=== PATIENT | female | born 1935 | race Caucasian/White ===

== ENCOUNTER → 2017-11-01 10:44 | Outpatient (BNVA) | payer MEDICARE, MEDICAID, SELFPAY | PROVIDERS: PCP Internal Medicine; Visit Provider Nurse Practitioner Family | DX: I48.2 Chronic atrial fibrillation (principal); Z45.02 Encounter for adjustment and management of automatic implantable cardiac defibrillator; I49.5 Sick sinus syndrome; E53.8 Deficiency of other specified B group vitamins; Z86.73 Personal history of transient ischemic attack (TIA), and cerebral infarction without residual deficits | CPT/HCPCS: 93279; 99213 ==

== ENCOUNTER → 2018-01-05 10:51 | Outpatient (BNVA) | payer MEDICARE, MEDICAID, SELFPAY | PROVIDERS: PCP Internal Medicine; Visit Provider Orthopaedic Surgery | DX: M17.12 Unilateral primary osteoarthritis, left knee (principal) | CPT/HCPCS: 20610; 99211; 99213; J1040 ==

== ENCOUNTER → 2018-02-07 12:58 | Outpatient (BNVA) | payer MEDICARE, MEDICAID, SELFPAY | PROVIDERS: PCP Internal Medicine; Visit Provider Nurse Practitioner Family | DX: I49.5 Sick sinus syndrome (principal); I48.2 Chronic atrial fibrillation; Z45.018 Encounter for adjustment and management of other part of cardiac pacemaker | CPT/HCPCS: 93279; 99213 ==

== ENCOUNTER → 2018-02-28 09:17 | Outpatient (BNVA) | payer MEDICARE, MEDICAID, SELFPAY | PROVIDERS: PCP Internal Medicine; Visit Provider Nurse Practitioner Family | DX: I49.5 Sick sinus syndrome (principal); I48.2 Chronic atrial fibrillation; Z45.02 Encounter for adjustment and management of automatic implantable cardiac defibrillator | CPT/HCPCS: 93279; 99213 ==

== ENCOUNTER → 2018-04-20 09:47 | Outpatient (BNVA) | payer MEDICARE, MEDICAID, SELFPAY | PROVIDERS: PCP Internal Medicine; Visit Provider Nurse Practitioner Family | DX: I49.5 Sick sinus syndrome (principal); I48.2 Chronic atrial fibrillation; Z45.018 Encounter for adjustment and management of other part of cardiac pacemaker; Z79.01 Long term (current) use of anticoagulants | CPT/HCPCS: 93280; 99213 ==

== ENCOUNTER 2018-04-27 12:18 | Outpatient (REF) | payer MEDICARE, MEDICAID, SELFPAY ==
[2018-04-27 21:59] LABS: Anion Gap 9.4 mmol/L (3-11); BUN 10 mg/dL (7-18); CO2 27.6 mmol/L (21.0-32.0); Chloride 105 mmol/L (98-107); Estimated GFR 59.94 (mL/min/1.73m2); Glucose 166 mg/dL (70-100); Potassium 3.8 mmol/L (3.5-5.1); Sodium 142 mmol/L (136-145)
== END 2018-04-27 12:38 ==
LOC: NCHCN 12:18
PROVIDERS: PCP Internal Medicine; Visit Provider Internal Medicine
DX: I10 Essential (primary) hypertension (principal); E11.9 Type 2 diabetes mellitus without complications; E53.8 Deficiency of other specified B group vitamins; I48.91 Unspecified atrial fibrillation; M17.9 Osteoarthritis of knee, unspecified
CPT/HCPCS: 80048

== ENCOUNTER → 2018-10-31 13:20 | Outpatient (BNVA) | payer MEDICARE, MEDICAID, SELFPAY | PROVIDERS: PCP Internal Medicine; Visit Provider Nurse Practitioner Family | DX: I49.5 Sick sinus syndrome (principal); I48.2 Chronic atrial fibrillation; Z79.01 Long term (current) use of anticoagulants; Z45.02 Encounter for adjustment and management of automatic implantable cardiac defibrillator | CPT/HCPCS: 93283; 99024 ==

== ENCOUNTER 2019-01-10 00:28 | Outpatient (CLI) | payer MEDICARE, MEDICAID, SELFPAY ==
--- NOTE | 2019-01-10 14:09 | DI.RAD_ITS ---
EXAM: XR FOOT LT COMPLETE INDICATION: LT FOOT PAIN, M79.672, INJURY 4-6 WEEKS AGO. COMPARISON: No exams were available for comparison TECHNIQUE: 2D digital imaging was performed. FINDINGS: The bones appear osteoporotic. No acute or subacute fracture is seen. A heel spur and vascular calc ifications are incidentally noted. There are minimal degenerative changes. IMPRESSION: No acute abnormality.
== END 2019-01-10 00:48 ==
PROVIDERS: PCP Internal Medicine; Visit Provider Internal Medicine
DX: M79.672 Pain in left foot (principal); M85.88 Other specified disorders of bone density and structure, other site; M77.32 Calcaneal spur, left foot
CPT/HCPCS: 73630

== ENCOUNTER → 2019-04-25 10:58 | Outpatient (BNVA) | payer MEDICARE, MEDICAID, SELFPAY | PROVIDERS: PCP Internal Medicine; Referring Provider Internal Medicine; Visit Provider Internal Medicine Cardiovascular Disease | DX: Z95.0 Presence of cardiac pacemaker (principal) | CPT/HCPCS: 93279; 99212 ==

== ENCOUNTER 2019-07-05 10:53 | Outpatient (REF) | payer MEDICARE, MEDICAID, SELFPAY ==
[2019-07-06 09:00] LABS: Anion Gap 6.7 mmol/L (3-11); BUN 13 mg/dL (7-18); CO2 31.3 mmol/L (21.0-32.0); CREATININE 0.99 mg/dL (0.55-1.02); Calcium 9.4 mg/dL (8.5-10.1); Chloride 102 mmol/L (98-107); Estimated GFR 53.57 (mL/min/1.73m2); Glucose 162 mg/dL (74-106); Potassium 4.6 mmol/L (3.5-5.1); Sodium 140 mmol/L (136-145)
[2019-07-06 09:10] LABS: Hemoglobin A1C 6.5 % (3.8-5.6)
== END 2019-07-05 11:13 ==
LOC: NCHCN 10:53
PROVIDERS: PCP Internal Medicine; Visit Provider Internal Medicine
DX: E11.9 Type 2 diabetes mellitus without complications (principal); I10 Essential (primary) hypertension
CPT/HCPCS: 80048; 83036

== ENCOUNTER 2019-11-08 10:41 | Outpatient (REF) | payer MEDICARE, MEDICAID, SELFPAY ==
[2019-11-08 21:03] LABS: HCT 47.1 % (36.0-46.0); HGB 15.5 g/dL (11.2-15.7); MCH 32.6 pg (27.0-33.0); MCHC 32.9 % (32.0-36.0); MCV 98.9 fL (80-95); MPV 12.8 fL (8.0-11.0); Platelet Count 188 10^3/uL (130-400); RBC 4.76 10^6/uL (3.93-5.22); RDW 14.2 % (11.7-14.6); RDW-SD 51.8 fL; WBC 4.76 10^3/uL (4.4-10.8)
[2019-11-08 21:35] LABS: ALT 31 U/L (14-59); AST 33 U/L (15-37); Albumin 3.7 g/dL (3.4-5.0); Alkaline Phosphatase 145 U/L (46-116); Anion Gap 7.1 mmol/L (3-11); BUN 9 mg/dL (7-18); Bilirubin, Total 0.5 mg/dL (0.2-1.0); CO2 30.9 mmol/L (21.0-32.0); CREATININE 1.06 mg/dL (0.55-1.02); Calcium 9.2 mg/dL (8.5-10.1); Chloride 104 mmol/L (98-107); Estimated GFR 49.39 (mL/min/1.73m2); FREE T4 1.02 ng/dL (0.76-1.46); Glucose 161 mg/dL (74-106); Sodium 142 mmol/L (136-145); TSH 2.16 uIU/mL (0.36-3.74); Total Protein 7.1 g/dL (6.4-8.2)
== END 2019-11-08 11:01 ==
LOC: NCHCN 10:41
PROVIDERS: Visit Provider Internal Medicine
DX: R63.4 Abnormal weight loss (principal)
CPT/HCPCS: 80053; 85027; 84439; 84443

== ENCOUNTER → 2019-12-12 13:28 | Outpatient (BNVA) | payer MEDICARE, MEDICAID, SELFPAY | PROVIDERS: PCP Internal Medicine; Referring Provider Internal Medicine; Visit Provider Physician Assistant | DX: I48.20 Chronic atrial fibrillation, unspecified (principal); Z45.018 Encounter for adjustment and management of other part of cardiac pacemaker; Z79.01 Long term (current) use of anticoagulants | CPT/HCPCS: 93279; 99212 ==

== ENCOUNTER 2020-03-06 17:11 | Outpatient (REF) | payer MEDICARE, MEDICAID, SELFPAY ==
[2020-03-06 21:29] LABS: ALT 26 U/L (14-59); AST 31 U/L (15-37); Albumin 3.6 g/dL (3.4-5.0); Alkaline Phosphatase 135 U/L (46-116); Bilirubin, Total 0.4 mg/dL (0.2-1.0)
[2020-03-06 21:44] LABS: Hemoglobin A1C 6.5 % (<5.7)
== END 2020-03-06 17:31 ==
LOC: NCHCN 17:11
PROVIDERS: Visit Provider Internal Medicine
DX: I10 Essential (primary) hypertension (principal); I48.91 Unspecified atrial fibrillation; R94.5 Abnormal results of liver function studies; R73.09 Other abnormal glucose
CPT/HCPCS: 80076; 83036

== ENCOUNTER 2020-06-09 15:20 | Outpatient (REF) | payer MEDICARE, MEDICAID, SELFPAY ==
[2020-06-09 22:37] LABS: Vitamin B12 380 pg/mL (193-986)
== END 2020-06-09 15:21 | disposition home or self-care (01) ==
LOC: NCHCN 15:20
PROVIDERS: Visit Provider Internal Medicine
DX: E53.8 Deficiency of other specified B group vitamins (principal)
CPT/HCPCS: 82607

== ENCOUNTER → 2020-06-11 11:29 | Outpatient (BNVA) | payer MEDICARE, MEDICAID, SELFPAY | PROVIDERS: PCP Internal Medicine; Referring Provider Internal Medicine; Visit Provider Physician Assistant | DX: I48.21 Permanent atrial fibrillation (principal); I49.5 Sick sinus syndrome; Z45.018 Encounter for adjustment and management of other part of cardiac pacemaker | CPT/HCPCS: 93280; 99212 ==

== ENCOUNTER → 2020-12-10 13:57 | Outpatient (BNVA) | payer MEDICARE, MEDICAID, SELFPAY | PROVIDERS: PCP Internal Medicine; Referring Provider Internal Medicine; Visit Provider Physician Assistant | DX: I49.5 Sick sinus syndrome (principal); I48.21 Permanent atrial fibrillation; Z45.018 Encounter for adjustment and management of other part of cardiac pacemaker | CPT/HCPCS: 93280; 99212 ==

== ENCOUNTER 2021-03-10 19:00 | Outpatient (REF) | payer MEDICARE, MEDICAID, SELFPAY ==
[2021-03-10 16:06] LABS: HCT 44.7 % (36.0-46.0); HGB 14.9 g/dL (11.2-15.7); MCH 31.8 pg (27.0-33.0); MCHC 33.3 % (32.0-36.0); MCV 95.5 fL (80-95); MPV 12.5 fL (8.0-11.0); Platelet Count 200 10^3/uL (130-400); RBC 4.68 10^6/uL (3.93-5.22); RDW 13.7 % (11.7-14.6); RDW-SD 48.3 fL; WBC 4.46 10^3/uL (4.4-10.8)
[2021-03-10 16:28] LABS: Anion Gap 6.8 mmol/L (3-11); BUN 11 mg/dL (7-18); CO2 28.2 mmol/L (21.0-32.0); CREATININE 0.9 mg/dL (0.55-1.02); Calcium 8.9 mg/dL (8.5-10.1); Chloride 104 mmol/L (98-107); Estimated GFR 59.51 (mL/min/1.73m2); Glucose 140 mg/dL (74-106); Potassium 3.9 mmol/L (3.5-5.1); Sodium 139 mmol/L (136-145); Vitamin B12 568 pg/mL (193-986)
== END 2021-03-10 19:01 | disposition home or self-care (01) ==
LOC: NCHCN 19:00
PROVIDERS: PCP Internal Medicine; Visit Provider Family Medicine
DX: I10 Essential (primary) hypertension (principal); E53.8 Deficiency of other specified B group vitamins
CPT/HCPCS: 80048; 85027; 82607

== ENCOUNTER → 2021-06-10 13:43 | Outpatient (BNVA) | payer MEDICARE, MEDICAID, SELFPAY | PROVIDERS: PCP Internal Medicine; Visit Provider Physician Assistant | DX: I48.20 Chronic atrial fibrillation, unspecified (principal); Z95.0 Presence of cardiac pacemaker; I49.5 Sick sinus syndrome | CPT/HCPCS: 93279 ==

== ENCOUNTER 2021-09-08 19:05 | Outpatient (REF) | payer MEDICARE, MEDICAID, SELFPAY ==
[2021-09-08 16:02] LABS: Vitamin B12 911 pg/mL (193-986)
== END 2021-09-08 19:06 | disposition home or self-care (01) ==
LOC: NCHCN 19:05
PROVIDERS: PCP Internal Medicine; Visit Provider Family Medicine
DX: E53.8 Deficiency of other specified B group vitamins (principal)
CPT/HCPCS: 82607

== ENCOUNTER 2021-12-02 19:02 | Outpatient (REF) | payer MEDICARE, MEDICAID, SELFPAY | END 2021-12-02 19:03 | disposition home or self-care (01) | LOC: NCHCN 19:02 | PROVIDERS: PCP Internal Medicine; Visit Provider Family Medicine | DX: R30.0 Dysuria (principal) | CPT/HCPCS: 87077; 87086; 87186 ==

== ENCOUNTER → 2021-12-09 13:57 | Outpatient (BNVA) | payer MEDICARE, MEDICAID, SELFPAY | PROVIDERS: PCP Internal Medicine; Visit Provider Physician Assistant | DX: I48.20 Chronic atrial fibrillation, unspecified (principal); Z95.0 Presence of cardiac pacemaker; I49.5 Sick sinus syndrome | CPT/HCPCS: 93280 ==

== ENCOUNTER 2022-03-11 13:14 | Outpatient (REF) | payer MEDICARE, MEDICAID, SELFPAY ==
[2022-03-11 21:23] LABS: ALT 27 U/L (14-59); AST 37 U/L (15-37); Albumin 3.8 g/dL (3.4-5.0); Alkaline Phosphatase 137 U/L (46-116); Anion Gap 8.4 mmol/L (3-11); BUN 11 mg/dL (7-18); Bilirubin, Total 0.8 mg/dL (0.2-1.0); CO2 29.6 mmol/L (21.0-32.0); CREATININE 0.9 mg/dL (0.55-1.02); Calcium 9.3 mg/dL (8.5-10.1); Calculated LDL 100 mg/dL (<100); Chloride 105 mmol/L (98-107); Cholesterol 186 mg/dL (<200); Estimated GFR 62.26 (mL/min/1.73m2); Glucose 140 mg/dL (74-106); HDL Cholesterol 71 mg/dL (40-60); Potassium 4.2 mmol/L (3.5-5.1); Sodium 143 mmol/L (136-145); Total Protein 7.2 g/dL (6.4-8.2); Triglyceride 78 mg/dL (<150)
[2022-03-11 22:08] LABS: Vitamin B12 765 pg/mL (193-986)
== END 2022-03-11 13:15 | disposition home or self-care (01) ==
LOC: NCHCN 13:14
PROVIDERS: Visit Provider Family Medicine
DX: E53.8 Deficiency of other specified B group vitamins (principal); E11.9 Type 2 diabetes mellitus without complications; E78.00 Pure hypercholesterolemia, unspecified; I48.91 Unspecified atrial fibrillation; G60.9 Hereditary and idiopathic neuropathy, unspecified
CPT/HCPCS: 80053; 80061; 82607

== ENCOUNTER 2022-06-09 07:53 | Outpatient (CLI) | payer MEDICARE, MEDICAID, SELFPAY ==
--- NOTE | 2022-06-09 07:45 | RT.EKG_ITS ---
APPROVED REPORT Exam: Resting ECG Reason for Exam: afib Patient Location: O HR:90 bpm ECG Measurements Heart Rate 90 AXIS NC [id number] P [id number] QRSd 112 QRS 4 QT 374 T -57 QTc 458 Conclusion Afib/flut and V-paced complexes...other complexes, A-rate>240 No further rhythm analysis attempted due to paced rhythm Probable left ventricular hypertrophy...(RaVL+SV3)xQRSd >300 Nonspecific T abnormalities, inferior leads...T <-0.10mV, II III aVF Baseline wander in lead(s) V5
== END 2022-06-09 07:54 | disposition home or self-care (01) ==
LOC: DI.CARD 07:54
PROVIDERS: PCP Internal Medicine; Visit Provider Physician Assistant
DX: I48.91 Unspecified atrial fibrillation (principal)
CPT/HCPCS: 93010

== ENCOUNTER → 2022-06-09 13:57 | Outpatient (BNVA) | payer MEDICARE, MEDICAID, SELFPAY | PROVIDERS: PCP Internal Medicine; Visit Provider Physician Assistant | DX: Z46.89 Encounter for fitting and adjustment of other specified devices (principal); I48.20 Chronic atrial fibrillation, unspecified; Z79.01 Long term (current) use of anticoagulants; Z95.0 Presence of cardiac pacemaker | CPT/HCPCS: 93005; 93279; 99213 ==

== ENCOUNTER → 2022-12-08 14:23 | Outpatient (BNVA) | payer MEDICARE, MEDICAID, SELFPAY | PROVIDERS: PCP Internal Medicine; Referring Provider Internal Medicine; Visit Provider Physician Assistant | DX: Z45.018 Encounter for adjustment and management of other part of cardiac pacemaker (principal); I48.20 Chronic atrial fibrillation, unspecified; Z79.01 Long term (current) use of anticoagulants; I49.5 Sick sinus syndrome | CPT/HCPCS: 93279 ==

== ENCOUNTER 2023-03-15 16:14 | Outpatient (REF) | payer MEDICARE, MEDICAID, SELFPAY ==
[2023-03-15 21:42] LABS: HCT 44.4 % (36.0-46.0); HGB 14.6 g/dL (11.2-15.7); MCH 32.2 pg (27.0-33.0); MCHC 32.9 % (32.0-36.0); MCV 98 fL (80-95); MPV 11.6 fL (8.0-11.0); Platelet Count 201 10^3/uL (130-400); RBC 4.54 10^6/uL (3.93-5.22); RDW 13.8 % (11.7-14.6); RDW-SD 49.8 fL; WBC 5.11 10^3/uL (4.4-10.8)
[2023-03-15 22:03] LABS: ALT 35 U/L (14-59); AST 41 U/L (15-37); Albumin 3.5 g/dL (3.4-5.0); Alkaline Phosphatase 143 U/L (46-116); Anion Gap 8.2 mmol/L (3-11); BUN 13 mg/dL (7-18); Bilirubin, Total 0.6 mg/dL (0.2-1.0); CO2 29.8 mmol/L (21.0-32.0); CREATININE 0.9 mg/dL (0.55-1.02); Calcium 9.5 mg/dL (8.5-10.1); Chloride 105 mmol/L (98-107); Estimated GFR 61.87 (mL/min/1.73m2); Glucose 106 mg/dL (74-106); Sodium 143 mmol/L (136-145); Total Protein 7.3 g/dL (6.4-8.2)
== END 2023-03-15 16:15 | disposition home or self-care (01) ==
LOC: NCHCN 16:14
PROVIDERS: PCP Family Medicine; Visit Provider Family Medicine
DX: E11.9 Type 2 diabetes mellitus without complications (principal)
CPT/HCPCS: 80053; 85027

== ENCOUNTER → 2023-06-08 13:13 | Outpatient (BNVA) | payer MEDICARE, MEDICAID, SELFPAY | PROVIDERS: PCP Family Medicine; Visit Provider Student in an Organized Health Care Education/Training Program | DX: I48.20 Chronic atrial fibrillation, unspecified (principal); Z45.018 Encounter for adjustment and management of other part of cardiac pacemaker | CPT/HCPCS: 93280 ==

== ENCOUNTER 2023-09-14 14:29 | Outpatient (REF) | payer MEDICARE, MEDICAID, SELFPAY ==
[2023-09-14 14:52] LABS: Abs Immature Grans 0.02 10^3/uL (0.0-0.06); Absolute Basophil Count 0.06 10^3/uL (0.0-0.2); Absolute Eosinophil Count 0.24 10^3/uL (0.0-0.7); Absolute Lymphocyte Count 1.06 10^3/uL (1.2-3.4); Absolute Monocyte Count 0.47 10^3/uL (0.1-0.8); Absolute Neutrophil Count 3.35 10^3/uL (1.2-6.7); Basophils % 1.2 %; Eosinophils % 4.6 %; HCT 41.8 % (36.0-46.0); HGB 13.7 g/dL (11.2-15.7); Immature Grans % 0.4 %; Lymphocytes % 20.4 %; MCH 32.5 pg (27.0-33.0); MCHC 32.8 % (32.0-36.0); MCV 99 fL (80-95); MPV 11.8 fL (8.0-11.0); Neutrophils % 64.4 %; Platelet Count 159 10^3/uL (130-400); RBC 4.22 10^6/uL (3.93-5.22); RDW 13.7 % (11.7-14.6); RDW-SD 49.7 fL
[2023-09-14 15:40] LABS: Vitamin B12 483 pg/mL (193-986)
== END 2023-09-14 14:30 | disposition home or self-care (01) ==
LOC: NCHCN 14:29
PROVIDERS: PCP Family Medicine; Visit Provider Family Medicine
DX: G60.9 Hereditary and idiopathic neuropathy, unspecified (principal)
CPT/HCPCS: 82607; 85025

== ENCOUNTER → 2023-12-07 13:48 | Outpatient (BNVA) | payer MEDICARE, MEDICAID, SELFPAY | PROVIDERS: PCP Family Medicine; Visit Provider Student in an Organized Health Care Education/Training Program | DX: I48.20 Chronic atrial fibrillation, unspecified (principal); I49.5 Sick sinus syndrome; Z45.018 Encounter for adjustment and management of other part of cardiac pacemaker | CPT/HCPCS: 93280 ==

== ENCOUNTER 2024-03-21 22:14 | Outpatient (REF) | payer MEDICARE, MEDICAID, SELFPAY ==
--- OUTSIDE RECORDS SUMMARY | 2024-03-21 22:18 | XMS_ITS | Encounter Summary ---
Author Organization [facility] Address [address] [place] [address] Care Team Providers Care Urban Sociologist Name Role Phone Unavailable Primary Care Provider Unavailabl e Encounter Details Date Type Department Care Team (Late st Contact Info) Description 02/06/2007 Results Only [facility] [place] conversion [address] [place] [address] Elder Camacho FNP [address] [place], [place] [id number] Social History Tobacco Use Types Packs/Day Years Used Date Smoking Tobacco: Never Assessed Comments Unknown Sex and Gender Information Value Date Recorded Sex Assigned at Not on file Legal Sex Female 18:28 EST Gender Identity Not on file Sexual Orientation Not on file documented as of this encounter Plan of Treatment Not on file documented as of this encounter Procedures Procedure Name Priority Date/Time Associated Diagnosis Comments CYTOPATHOLOGY Routine 02/06/2007 0:00 EST documented in this encounter Results * CYTOPATHOLOGY (02/06/2007 0:00 EST) Pathology Report: CYTOPATHOLOGY REPORT Reports generated via electronic interface contain original data; however they are lacking the format of the original report. Caution should be taken when reading/interpreti ng unformatted reports. Name: ? KENNEDI REID ? Accession #: ? [id number] : ? 1935 (Age: 71) ??F ?Collect Date: ? 02/06/2007 Location: ? [facility] ? Receive Date: ? 02/07/2007 Provider: ?ELDER CAMACHO CADD OPERATOR Copy to: ? Specimen/Source: ?ThinPrep Pap Test, Cervix/Endocervix, processed on [employer] ThinPrep Imaging System, with manual evaluation Last Menstrual Period: ? ANTONETTE Other: ? HPVA - HPV testing requested if ASC-US on the current ThinPrep Pap test. ? SPECIMEN ADEQUACY ? Satisfactory for Evaluation - transformation zone component present GENERAL CATEGORIZATION ? Negative for Intraepithelial Lesion or Malignancy ? Document reviewed and electronically signed by: ? DARRIAN Rudolph(ASCP) ? Report Date: ??02/09/2007 10:03 End of Report [facility] 02/06/2007 02/07/2007 us Elder Camacho CADD OPERATOR PATHOLOGY ORDERABLES Final Resul t [facility] [address] [place] [address] documented in this encounter Visit Diagnoses Not on filedocumented in this encounter
--- OUTSIDE RECORDS SUMMARY | 2024-03-21 22:18 | XMS_ITS | Encounter Summary ---
Author Organization [facility] Address [address] [place] [address] Care Team Providers Care 2Nd Pressman Name Role Phone Unavailable Primary Care Provider Unavailabl e Encounter Details Date Type Department Care Team (Late st Contact Info) Description 02/11/2005 Results Only [facility] [place] conversion [address] [place] [address] Miguel Flores MD [address] [place] [id number] Social History Tobacco Use Types Packs/Day Years [...] Procedure Name Priority Date/Time Associated Diagnosis Comments SURGICAL PATHOLOGY Routine 02/11/2005 0:00 EST documented in this encounter Results * SURGICAL PATHOLOGY (02/11/2005 0:00 EST) Pathology Report: SURGICAL PATHOLOGY REPORT Reports generated via electronic interface contain original data; however they are lacking the format of the original report. Caution should be taken when reading/interpreti ng unformatted reports. Name: ? KENNEDI REID ? Accession #: ? [id number] ? : ? 1935 (Age: 69) ??F ? Collect Date: ? 02/11/2005 ? Location: ? [facility] ? Receive Date: ? 02/12/2005 ? Provider: MIGUEL FLORES MD Copy to: ELDERGAYE HAZEL INDUSTRIAL AERIAL INSTALLER ? Final Pathologic Diagnosis: A. ?Duodenum, fold, biopsy: 1. ?Small bowel mucosa with no specific pathologic features. B. ?Stomach, antrum, biopsy: 1. ?Gastric mucosa with mild chronic inflammation. 2. ?No Helicobacter pylori-like organisms identified on the H+E stained slides. C. ?Esophagus, 35 cm, biopsy: 1. ?Gastro-esophagea l junctional mucosa with chronic ??and focal mild acute inflammation. 2. ?No Helicobacter pylori-like organisms identified on the H+E stained slides. Document reviewed and electronically signed by: IMANI JAFFE MD Report ??Date: 02/16/2005 17:01 By the signature above, the attending physician certifies that he/she has personally conducted a gross and/or microscopic examination of the described specimens and rendered or confirmed the above diagnosis. Specimen(s) Received: A. ?Bx duodenal fold (#1) B. ?Bx antrum (#2) C. ?Esophagus 35 cm (#3) Clinical History: ? Hx GI bleed Gross Description: ? Received in Hollande's fixative labelled Jeanette and #1 bx duodenal fold are three fragments of orozco-brown soft tissue which measures 0.3 x 0.2 x 0.2 cm each. The specimen is entirely submitted in one cassette as (A). Received in Hollande's fixative labelled Hunt and #2 bx antrum are two fragments of orozco-brown soft tissue which measures 0.2 x 0.2 x 0.2 cm and 0.4 x 0.2 x 0.2 cm. The specimen is entirely submitted in one cassette as (B). Received in Hollande's fixative labelled Jeanette and #3 esophagus 35 cm are three fragments of orozco-brown soft tissue which measures 0.3 x 0.3 x 0.3 cm each. ??The specimen is entirely submitted in one cassette as (C). (Dr. Washington-AD)/mpl End of Report [facility] 02/11/2005 02/12/2005 8:4 3 EST us Miguel Flores MD PATHOLOGY ORDERABLES Final Result [facility] [address] [place] [address] documented in this encounter Visit Diagnoses Not on filedocumented in this encounter
--- OUTSIDE RECORDS SUMMARY | 2024-03-21 22:18 | XMS_ITS | Referral Summary ---
Author Organization [facility] Address [address] [place] [address] Care Team Providers Care Superintendent Nonselling Name Role Phone Luma Camacho Primary Care Provider [phone] Social History Tobacco Use Types Packs/Day Years Used Date Smoking Tobacco: Never Assessed Comments Unknown Sex and Gender Information Value Date Recorded Sex Assigned at Not on file Legal Sex Female 18:28 EST Gender Identity Not on file Sexual Orientation Not on file Plan of Treatment Not on file Care Teams Superintendent Nonselling Relationship Specialty Start Date End Date Luma Camacho FNP [address] [place] [address] PCP - General 12/27/14
--- OUTSIDE RECORDS SUMMARY | 2024-03-21 22:18 | XMS_ITS | Encounter Summary ---
Author Organization [facility] Address [address] [place] [address] Care Team Providers Care Document Control Manager Name Role Phone Unavailable Primary Care Provider Unavailabl e Encounter Details Date Type Department Care Team (Late st Contact Info) Description 05/30/2003 Results Only [facility] [place] [facility] [place] conversion [address] [place] [address] Elder Camacho FNP [address] [place], [place] [id number] Social History Tobacco Use Types Packs/Day Years [...] Priority Date/Time Associated Diagnosis Comments CYTOPATHOLOGY Routine 05/30/2003 0:00 EDT documented in this encounter Results * CYTOPATHOLOGY (05/30/2003 0:00 EDT) Pathology Report: CYTOPATHOLOGY REPORT Reports generated via electronic interface contain original data; however they are lacking the format of the original report. Caution should be taken when reading/interpreti ng unformatted reports. Name: ? KENNEDI REID ? Accession #: ? [id number] : ? 1935 (Age: 67) ??F ?Collect Date: ? 05/30/2003 Location: ? [facility] ? Receive Date: ? 06/03/2003 Provider: ?ELDER CAMACHO RADIOGRAPHER TECHNOLOGIST Copy to: ? Specimen/Source: ?ThinPrep Pap Test, Cervix/Endocervix Last Menstrual Period: ? Many Years Ago Previous Gynecologic Pathology: ? Yes: remote ? SPECIMEN ADEQUACY ? Satisfactory for Evaluation - transformation zone component present GENERAL CATEGORIZATION ? Negative for Intraepithelial Lesion or Malignancy ? Document reviewed and electronically signed by: ? Aneta Canela, SCT(ASCP) ? Report Date: ??06/05/2003 13:19 End of Report [facility] 05/30/2003 06/03/2003 Elder AGUEROP PATHOLOGY ORDERABLES Final Resul t [facility] [address] [place] [address] documented in this encounter Visit Diagnoses Not on filedocumented in this encounter
--- OUTSIDE RECORDS SUMMARY | 2024-03-21 22:18 | XMS_ITS | Encounter Summary ---
Author Organization [facility] Address [address] [place] [address] Care Team Providers Care Wheat Washer Name Role Phone Unavailable Primary Care Provider Unavailabl e Encounter Details Date Type Department Care Team (Late st Contact Info) Description 03/07/2001 Results Only [facility] [place] conversion [address] [place] [address] Elder Camacho FNP [address] [place], [place] [id number] Social History Tobacco Use Types Packs/Day Years [...] Priority Date/Time Associated Diagnosis Comments CYTOPATHOLOGY Routine 03/07/2001 0:00 EST documented in this encounter Results * CYTOPATHOLOGY (03/07/2001 0:00 EST) Pathology Report: CYTOPATHOLOGY REPORT Reports generated via electronic interface contain original data; however they are lacking the format of the original report. Caution should be taken when reading/interpreti ng unformatted reports. Name: ? KENNEDI REID ? Accession #: ? [id number] : ? 1935 (Age: 65) ??F ?Collect Date: ? 03/07/2001 Location: ? [facility] ? Receive Date: ? 03/09/2001 Provider: ?ELDER CAMACHO FORESTRY WORKERS Copy to: ? Specimen/Source: ?ThinPrep Pap Test, Cervix/Endocervix Last Menstrual Period: ? Many years ago. Previous Gynecologic Pathology: ? Yes: Atypical x 2 yrs ago. ? SPECIMEN ADEQUACY ? Satisfactory for Evaluation - transformation zone component present GENERAL CATEGORIZATION ? Negative for Intraepithelial Lesion or Malignancy ? Document reviewed and electronically signed by: ? Eliane Parrish, SCT(ASCP) ? Report Date: ??03/10/2001 09:47 End of Report [facility] 03/07/2001 03/09/2001 us Elder AGUEROP PATHOLOGY ORDERABLES Final Resul t [facility] [address] [place] [address] documented in this encounter Visit Diagnoses Not on filedocumented in this encounter
--- OUTSIDE RECORDS SUMMARY | 2024-03-21 22:18 | XMS_ITS | Clinical Summary ---
Author Organization [facility] Address [address] [place] [address] Care Team Providers Care Patrol Mother Name Role Phone Luma Camacho Primary Care Provider [phone] Social History Tobacco Use Types Packs/Day Years Used Date Smoking Tobacco: Never Assessed Comments Unknown Sex and Gender Information Value Date Recorded Sex Assigned at Not on file Legal Sex Female 18:28 EST Gender Identity Not on file Sexual Orientation Not on file Plan of Treatment Health Maintenance Due Date Last Done Comments Fall Risk Screening 10/12/2000 RSV Immunization ( o r 60+ Years) (1 - 1-dose 75+ series) 10/12/2010 COVID-19 Vaccine ( season) 2023 Care Teams Patrol Mother Relationship Specialty Start Date End Date Luma Camacho FNP [address] [place] [address] PCP - General 12/27/14
[2024-03-21 22:29] LABS: Abs Immature Grans 0.02 10^3/uL (0.0-0.06); Absolute Basophil Count 0.05 10^3/uL (0.0-0.2); Absolute Eosinophil Count 0.23 10^3/uL (0.0-0.7); Absolute Lymphocyte Count 1.17 10^3/uL (1.2-3.4); Absolute Monocyte Count 0.53 10^3/uL (0.1-0.8); Absolute Neutrophil Count 2.83 10^3/uL (1.2-6.7); Eosinophils % 4.8 %; HCT 41.1 % (36.0-46.0); HGB 13.7 g/dL (11.2-15.7); Immature Grans % 0.4 %; Lymphocytes % 24.2 %; MCH 32.3 pg (27.0-33.0); MCHC 33.3 % (32.0-36.0); MCV 97 fL (80-95); Neutrophils % 58.6 %; Platelet Count 166 10^3/uL (130-400); RBC 4.24 10^6/uL (3.93-5.22); RDW 14.6 % (11.7-14.6); RDW-SD 52.4 fL; WBC 4.83 10^3/uL (4.4-10.8)
[2024-03-21 22:51] LABS: ALT 33 U/L (14-59); AST 34 U/L (15-37); Albumin 3.4 g/dL (3.4-5.0); Alkaline Phosphatase 157 U/L (46-116); Anion Gap 8.2 mmol/L (3-11); BUN 11 mg/dL (7-18); Bilirubin, Total 0.66 mg/dL (0.2-1.0); CO2 26.8 mmol/L (21.0-32.0); CREATININE 0.9 mg/dL (0.55-1.02); Calcium 8.9 mg/dL (8.5-10.1); Chloride 106 mmol/L (98-107); Estimated GFR 61.49 (mL/min/1.73m2); Glucose 208 mg/dL (74-106); Potassium 4.1 mmol/L (3.5-5.1); Sodium 141 mmol/L (136-145); Total Protein 6.7 g/dL (6.4-8.2)
== END 2024-03-21 22:15 | disposition home or self-care (01) ==
LOC: NCHCN 22:14
PROVIDERS: PCP Family Medicine; Visit Provider Family Medicine
DX: I10 Essential (primary) hypertension (principal)
CPT/HCPCS: 80053; 85025

== ENCOUNTER → 2024-06-06 13:10 | Outpatient (BNVA) | payer MEDICARE, MEDICAID, SELFPAY | PROVIDERS: PCP Family Medicine; Referring Provider Family Medicine; Visit Provider Student in an Organized Health Care Education/Training Program | DX: Z95.810 Presence of automatic (implantable) cardiac defibrillator (principal); I49.5 Sick sinus syndrome | CPT/HCPCS: 93280 ==

== ENCOUNTER 2024-06-14 17:07 | Outpatient (REF) | payer MEDICARE, MEDICAID, SELFPAY | END 2024-06-14 17:08 | disposition home or self-care (01) | LOC: NCHCN 17:07 | PROVIDERS: PCP Family Medicine; Visit Provider Nurse Practitioner Family | DX: R31.9 Hematuria, unspecified (principal); R82.89 Other abnormal findings on cytological and histological examination of urine | CPT/HCPCS: 87086 ==

== ENCOUNTER 2024-06-17 11:49 | Inpatient (IN) | payer MEDICARE, MEDICAID, SELFPAY ==
[2024-06-17] VITALS (17 sets, daily range): BP systolic 108–146; BP diastolic 62–88; PULSE 78–101; RESP 14–26; TEMP 36.5–36.9; O2SAT 95–100
--- NOTE | 2024-06-17 12:00 | RT.EKG_ITS ---
APPROVED REPORT Exam: Resting ECG Reason for Exam: Weakness Patient Location: E HR:92 bpm ECG Measurements Heart Rate 92 AXIS OK [id number] P [id number] QRSd 124 QRS 12 QT 416 T -61 QTc 514 Conclusion Atrial fibrillation...V-rate 64-135, irreg A-activity Nonspecific intraventricular conduction delay...QRSd >115mS, not LBBB/RBBB Repol abnrm suggests ischemia, diffuse leads...ST-T neg, ant/lat/inf No Occlusion IN
--- NOTE | 2024-06-17 12:15 | DI.RAD_ITS ---
Exam(s) XR CHEST 2V PA LATERAL EXAM: XR CHEST 2V PA LATERAL CLINICAL HISTORY: Weakness, sob jaundice TECHNIQUE: 2D digital imaging was performed of the chest. Two images were obtained. PA and lateral views were obtained. COMPARISON: CR CHEST 2 VIEWS PA,LAT from 12/04/2007 FINDINGS: MEDIASTINUM: Normal. HEART: Normal. PULMONARY VASCULATURE: Normal. LUNGS: Clear. PLEURAL SPACE: No pleural effusion or pneumothorax. BONE:Within normal limits for the patient's age. OTHER FINDINGS:There is a cardiac pacing device in place. IMPRESSION: No acute pulmonary findings. DATA REPOSITORY: RADIATION DOSE DELIVERED:
--- NOTE | 2024-06-17 12:15 | DI.CT_ITS ---
Exam(s) CT ABDOMEN PELVIS W EXAM: CT ABDOMEN PELVIS W CLINICAL HISTORY: jaundice, dizziness TECHNIQUE: Imaging Protocol: Axial computed tomography images with coronal and sagittal reformatted images were created and reviewed. CONTRAST MATERIAL: Intravenous: Omnipaque 350 Contrast volume:75 mL Oral: No COMPARISON: There are no priors for comparison. FINDINGS: ABDOMEN: Lung Bases: Cardiomegaly. Liver: Normal density. No measurable mass. Portal, Superior Mesenteric, and Splenic Veins: Unremarkable. Gallbladder and Biliary Tract: There are stones seen within the gallbladder. The gallbladder is dist ended measuring 4.7 cm in diameter. There is a small amount of pericholecystic fluid. There is mild intra and moderate extrahepatic biliary ductal dilatation. No obstructing stone is identified. The common duct measures 1.1 cm in diameter. There does appear to be some tapering of the head of the p ancreas and a pancreatic mass should be considered. Pancreas: There is atrophy of the pancreas with marked dilatation of the pancreatic duct. Spleen: Normal. Adrenals: No masses seen. Kidneys: Normal size, contour and axis. No radiodense stones or obstructive uropathy. No masses seen. There is mild cortical atrophy of the left kidney. Abdominal Aorta: Abdominal portion non-dilated. Atherosclerotic calcification is present. Bowel: There is diverticulosis of the colon but no evidence of acute diverticulitis. There is no bow el wall thickening or obstruction. Appendix is unremarkable. Peritoneal Cavity: There is a trace amount of free fluid in the pelvis. No free air. Lymph Nodes: Within normal limits. Bones: Within normal limits for the patient's age. Soft Tissues: Unremarkable. PELVIS: Bladder: Symmetric distention, no gross wall thickening. Reproductive Organs: Unremarkable as visualized. Lymph Nodes: Within normal limits. Bones: Within normal limits for the patient's age. IMPRESSION: 1. Intra and extrahepatic biliary ductal dilatation without definite evidence of choledocholithiasis. While obstructing stone should still be considered, pancreatic mass cannot be excluded. Further ev aluation with ERCP/MRCP is recommended. 2. Colonic diverticulosis without evidence of acute diverticulitis. 3. Cholelithiasis and distended gallbladder. Small amount of pericholecystic fluid. 4. Pancreatic atrophy and marked dilatation of the pancreatic duct. 5. Trace amount of free fluid in the pelvis. RADIATION DOSE DELIVERED: 239.2mGy.cm Total DLP DATA REPOSITORY: All CT scans at this facility are submitted to the National Radiology Data Registry (NRDR) Dose Index Registry (DIR) with the [employer] (A[employer]). RADIATION OPTIMIZATION: All CT scans at this facility use at least one of these dose optimization te chniques: automated exposure control; mA and/or kV adjustment per patient size (includes targeted exa ms where dose is matched to clinical indication); or iterative reconstruction.
--- NOTE | 2024-06-17 12:27 | ED.GENADUL_ITS ---
Discharge Plan Disposition Patient Disposition: Admit to [facility] Condition: Stable Discharge Details Clinical Impression: Jaundice, Electrolyte disturbance, Elevated transaminase measurement Primary Care Provider: Laron Mae ED Provider: Krystal Guerra Home Meds and New Rx's Prescriptions: No Action metoprolol tartrate 100 mg tablet 100 mg PO BID Patient Comments: patient reduced dose from 150mg BID to 100mg BID due to feeling cold especially in extremities - sx have improved potassium chloride 10 mEq capsule, extended release 20 meq PO BID Patient Comments: 12/09/21 pt states she forgets to take this sometimes. RH gabapentin 300 MG capsule 300 mg PO HS Eliquis 5 mg tablet 2.5 mg PO BID Qty: 30 pravastatin 40 MG tablet 40 mg PO .HS furosemide 20 MG tablet 20 mg PO DAILY Vitamin B-12 1,000 mcg/mL drops 1,000 mcg IM [id number] HPI General Mode of arrival: wheelchair . Date/Time Provider Initiated Documentation: 06/17/24 12:11 . Limitations to Documentation: no limitations . Information obtained by: patient, family, RN notes reviewed and old records reviewed . HPI Narrative: 88-year-old female presents to the ER coming by her family with a chief complaint of weakness, and jaundice. Family noticed that her skin looked yellow this morning. She also states that she got up and was very dizzy, she has been having hematuria going on for a week and was seen on for this. She denies any abdominal pain denies any headache or recent head injuries. She does take apixaban, furosemide metoprolol and pravastatin. She does endorse some off colored bowel movements but no diarrhea. No nausea or vomiting. She does endorse mild shortness of breath. Denies any chest pain. She is ANO x 3 at this time. She is conversive and answers all questions appropriately. Have a history of pacemaker, chronic atrial fibrillation, sick sinus syndrome. Related Data Home Medications ?Medication ?Instructions ?Recorded ?Confirmed furosemide 20 mg tablet 20 mg PO DAILY 01/09/13 06/17/24 pravastatin 40 mg tablet 40 mg PO .HS 01/09/13 06/17/24 gabapentin 300 mg capsule 300 mg PO HS 08/31/16 06/17/24 metoprolol tartrate 100 mg tablet 100 mg PO BID 12/10/20 06/17/24 potassium chloride 10 mEq 20 meq PO BID 06/09/22 06/17/24 capsule,extended release cyanocobalamin (vitamin B-12) 1,000 mcg IM [id number] 12/08/22 06/17/24 1,000 mcg/mL oral drops (Vitamin B-12) apixaban 5 mg tablet (Eliquis) 2.5 mg PO BID #30 tabs 06/08/23 06/17/24 Allergies Allergy/AdvReac Type Severity Reaction Status Date / Time Penicillins Allergy Intermediate local Verified 06/17/24 11:57 reaction nitroglycerin AdvReac Severe Other (See Verified 06/17/24 11:57 Comment) iron AdvReac Intermediate Nausea, Verified 06/17/24 11:57 passes out lisinopril AdvReac Mild cough Verified 06/17/24 11:57 General Stated Complaint: GenMedical MANE: 3 Review of Systems All systems reviewed & are unremarkable except as noted in HPI and below Constitutional Constitutional: Reports as per HPI and Reports weakness Cardiovascular Cardiovascular: Reports dyspnea Respiratory Respiratory: Reports dyspnea Gastrointestinal Gastrointestinal: Reports change in stool character Genitourinary Genitourinary: Reports hematuria Integumentary/Breasts Skin/Breast: Reports as per HPI and Reports jaundice Neurologic Neurologic: Reports weakness Exam Narrative Exam Narrative: Constitutional: Alert and oriented x3. Appears stated age. Normal body habitus. Head: Normocephalic, no trauma. Eyes: Pupils PERRL, Red reflex noted, EOM's intact. Eyelids symmetrical without lesions, discharge, or swelling. Scleral icterus noted. ENT: Bilateral TM's WNL, External ear normal to inspection, no mastoid TTP, swelling, or erythema, Nasal turbinates WNL, no nasal discharge. Normal dentition, Posterior pharynx WNL, no exudate. Chest: RRR, Normal S1, S2, distal pulses intact. Resp: Lungs clear to auscultation bilaterally, no wheezes, rales, or rhonchi. Abdomen: Soft, non-distended, Normoactive bowel sounds all 4 quads. Musculoskeletal: Normal gait, Moves all 4 extremities without difficulty. Skin: Jaundiced appearing on the trunk head area. No suspicious rashes or lesions. Capillary refill less than 2 sec. Neurologic: Cranial nerves II-XII intact. Alert and oriented x 3. Motor: No deficits noted. Sensory: Intact bilaterally all 4 extremities. Hematologic/Lymphatic: No ecchymosis, no lymphadenopathy. Eyes Sclera: scleral abnormality bilaterally other (icteris) Skin General skin exam: jaundice Lesions: no lesions Rashes: no rashes Course Vital Signs Vital signs: Vital Signs Temperature 36.5 C 06/17/24 11:50 Pulse 90 06/17/24 11:50 Respiratory Rate 18 06/17/24 11:50 Blood Pressure 124/88 06/17/24 11:50 Pulse Oximetry 100 06/17/24 11:50 Temperature 36.5 C 06/17/24 12:07 Pulse 90 06/17/24 12:07 Respiratory Rate 18 06/17/24 12:25 Respiratory Effort Normal, Non-Labored 06/17/24 12:25 Respiratory Depth Normal 06/17/24 12:25 Respiratory Pattern Normal 06/17/24 12:25 Blood Pressure 124/88 06/17/24 12:07 Pulse Oximetry 100 06/17/24 12:07 Oxygen Delivery Method Room Air 06/17/24 12:07 Oxygen Flow Rate 0 06/17/24 12:07 Medical Decision Making 88-year-old female presents to the ER coming by her family with a chief complaint of weakness, and jaundice. Family noticed that her skin looked yellow this morning. She also states that she got up and was very dizzy, she has been having hematuria going on for a week and was seen on for this. She denies any abdominal pain denies any headache or recent head injuries. She does take apixaban, furosemide metoprolol and pravastatin. She does endorse some off colored bowel movements but no diarrhea. No nausea or vomiting. She does endorse mild shortness of breath. Denies any chest pain. She is ANO x 3 at this time. She is conversive and answers all questions appropriately. Have a history of pacemaker, chronic atrial fibrillation, sick sinus syndrome. Workup ordered including EKG serial troponins, bilirubin lipase CBC CMP urinal ysis. Chest x-ray and CT abdomen pelvis with contrast. Differential diagnosis includes not limited to cholecystitis, cholelithiasis, choledocholithiasis, liver problem, EKG was reviewed by Dr. Sousa and myself ER attending, old EKG available for review. No STEMI. CBC shows no leukocytosis, platelets are 156, PT 13.5 INR 1.4, sodium 143 potassium is critically low at 2.9, anion gap 12.1 glucose 192, magnesium low at 1.6, total bilirubin is elevated at 13.1, conjugated bilirubin is 10.3, liver enzymes are largely elevated AST are 87, ALT 292, alk phos 605 initial troponin within normal limits, lipase within normal limits albumin is 3.1. Hepatitis panel is pending at this time. Normal saline at 150 an hour ordered, 1 g magnesium sulfate IV piggyback, 40 mill equivalents of potassium liquid p.o. and 10 mill equivalents IV piggyback. 1432: Discussed CT results and lab results with patient and family who verbalized understanding. Discussed the need for ERCP/ MRCP they agree to pro posed treatment and possible transfer as needed. 1437[place] [facility] [place] they will call [place] and call me back. 1504: Spoke with Dr. Perez, She recommends MRCP and there and back for ERCP she does not think it is urgent will plan for scheduling her for Tuesday, she reccommends holding Hydrocision. Will contact hospitalist for admission for MRCP and down and back ERCP in approximately 48 hours. 1522: Spoke with Dr. Alvarez who is in agreement for admission will accept patient for admission at this time. Discussed patient case in details. Discussed plan of care to patient and family who are in agreement with the plan. This text was generated using [employer] dictation system, please disregard any oddities of phrase or misspellings. Medical Records Medical records reviewed: Yes I reviewed the patient's medical records. Imaging Data Radiologic Study: Imaging: CT Scan Radiologist's impression: EXAM: CT ABDOMEN PELVIS W CLINICAL HISTORY: jaundice, dizziness TECHNIQUE: Imaging Protocol: Axial computed tomography images with coronal and sagittal reformatted images were created and reviewed. CONTRAST MATERIAL: Intravenous: Omnipaque 350 Contrast volume:75 mL Oral: No COMPARISON: There are no priors for comparison. FINDINGS: ABDOMEN: Lung Bases: Cardiomegaly. Liver: Normal density. No measurable mass. Portal, Superior Mesenteric, and Splenic Veins: Unremarkable. Gallbladder and Biliary Tract: There are stones seen within the gallbladder. The gallbladder is distended measuring 4.7 cm in diameter. There is a small amount of pericholecystic fluid. There is mild intra and moderate extrahepatic biliary ductal dilatation. No obstructing stone is identified. The common duct measures 1.1 cm in diameter. There does appear to be some tapering of the head of the pancreas and a pancreatic mass should be considered. Pancreas: There is atrophy of the pancreas with marked dilatation of the pancreatic duct. Spleen: Normal. Adrenals: No masses seen. Kidneys: Normal size, contour and axis. No radiodense stones or obstructive uropathy. No masses seen. There is mild cortical atrophy of the left kidney. Abdominal Aorta: Abdominal portion non-dilated. Atherosclerotic calcification is present. Bowel: There is diverticulosis of the colon but no evidence of acute diverticulitis. There is no bowel wall thickening or obstruction. Appendix is unremarkable. Peritoneal Cavity: There is a trace amount of free fluid in the pelvis. No free air. Lymph Nodes: Within normal limits. Bones: Within normal limits for the patient's age. Soft Tissues: Unremarkable. PELVIS: Bladder: Symmetric distention, no gross wall thickening. Reproductive Organs: Unremarkable as visualized. Lymph Nodes: Within normal limits. Bones: Within normal limits for the patient's age. IMPRESSION: 1. Intra and extrahepatic biliary ductal dilatation without definite evidence of choledocholithiasis. While obstructing stone should still be considered, pancreatic mass cannot be excluded. Further evaluation with ERCP/MRCP is recommended. 2. Colonic diverticulosis without evidence of acute diverticulitis. 3. Cholelithiasis and distended gallbladder. Small amount of pericholecystic fluid. 4. Pancreatic atrophy and marked dilatation of the pancreatic duct. 5. Trace amount of free fluid in the pelvis. Lab Data Lab results reviewed: Yes I reviewed the patient's lab results. Labs: Laboratory Tests Range/Units 06/17/24 06/17/24 06/17/24 12:20 12:20 13:23 WBC (4.4-10.8) 10^3/uL 5.71 RBC (3.93-5.22) 10^6/uL 4.27 Hgb (11.2-15.7) g/dL 13.8 Hct (36.0-46.0) % 39.9 MCV (80-95) fL 93 MCH (27.0-33.0) pg 32.3 MCHC (32.0-36.0) % 34.6 RDW (11.7-14.6) % 15.5 H Plt Count (130-400) 10^3/uL 156 MPV (8.0-11.0) fL Immature Gran % % 0.5 Neutrophils % % 75.7 Lymphocytes % % 11.0 Monocytes % % 9.8 Eosinophils % % 1.9 Basophils % % 1.1 Nucleated RBC % (0.0-0.3) % 0.4 H Absolute Neutrophils (1.2-6.7) 10^3/uL 4.32 Absolute Lymphocytes (1.2-3.4) 10^3/uL 0.63 L Absolute Monocytes (0.1-0.8) 10^3/uL 0.56 Absolute Eosinophils (0.0-0.7) 10^3/uL 0.11 Absolute Basophils (0.0-0.2) 10^3/uL 0.06 RBC Morphology Normal PT (9.1-11.1) sec 13.5 H INR (0.9-1.1) 1.4 H APTT (20.6-30.2) sec 27.3 Sodium (136-145) mmol/L 143 Potassium (3.5-5.1) mmol/L 2.9 L* Chloride (98-107) mmol/L 101 Carbon Dioxide (21.0-32.0) mmol/L 29.9 Anion Gap (3-11) mmol/L 12.1 H BUN (7-18) mg/dL 10 Creatinine (0.55-1.02) mg/dL 1.0 Est GFR (CKD-EPI 2020) (mL/min/1.73m2) 54.19 Glucose (74-106) mg/dL 192 H Calcium (8.5-10.1) mg/dL 9.3 Magnesium (1.8-2.4) mg/dL 1.6 L Total Bilirubin (0.2-1.0) mg/dL 13.1 H Conjugated Bilirubin (0.0-0.2) mg/dL 10.3 H Cancelled AST (15-37) U/L 387 H ALT (14-59) U/L 292 H Alkaline Phosphatase (46-116) U/L 605 H Troponin I (<or=51) ng/L 13 11 Total Protein (6.4-8.2) g/dL 6.9 Albumin (3.4-5.0) g/dL 3.1 L Lipase (<78) U/L 23 Quality:SDOH Health Related Social Needs: No Data to Display PFSH All Active Problems (Updated 06/17/24 @ 15:22 by Krystal Guerra NP) Elevated transaminase measurement (Acute) Electrolyte disturbance (Acute) Jaundice (Acute) Pacemaker (Acute) Medtronic Device; Model No. [id number]. MRI Compatible. Dual lead programmed VVIR Chronic atrial fibrillation (Chronic) She is having atrial fibrillation with RVR since the decrease of her metoprolol. I have asked her to return to metoprolol 150 mg twice daily which she has tolerated previously. Her rates have improved but still some high ventricular rates as discussed above. We may need to consider adding another AV yasmeen blocking agent such as diltiazem or consider adding digoxin if she does not get good rate control or is truly intolerant to higher doses of beta-sukhdev.She is appropriately anticoagulated on Eliquis. Sick sinus syndrome (Chronic) pacemaker implanted; PG replaced 02/2018 Vitamin B12 deficiency (Chronic) Primary osteoarthritis of left knee (Acute 05/05/15) Patient wants to continue nonoperative treatment. She is not interested in any type of surgery. She finds that the Depo-Medrol usually is helpful. Synvisc was not effective for her. Follow-up with me in 4 months for repeat Depo-Medrol into her left knee. Social History Smoking/Tobacco Use Status: Former Tobacco Use Smoking risk assessment performed?: Yes Alcohol Intake: never Drug use: Never Substance use type: does not use Do you feel safe at home: Yes Do you feel safe in your relationship?: Yes
[2024-06-17 12:30] LABS: Abs Immature Grans 0.03 10^3/uL (0.0-0.06); Absolute Basophil Count 0.06 10^3/uL (0.0-0.2); Absolute Eosinophil Count 0.11 10^3/uL (0.0-0.7); Absolute Lymphocyte Count 0.63 10^3/uL (1.2-3.4); Absolute Monocyte Count 0.56 10^3/uL (0.1-0.8); Absolute Neutrophil Count 4.32 10^3/uL (1.2-6.7); Basophils % 1.1 %; Eosinophils % 1.9 %; HCT 39.9 % (36.0-46.0); HGB 13.8 g/dL (11.2-15.7); Immature Grans % 0.5 %; MCH 32.3 pg (27.0-33.0); MCHC 34.6 % (32.0-36.0); MCV 93 fL (80-95); Monocytes % 9.8 %; Neutrophils % 75.7 %; Nucleated RBC 0.4 % (0.0-0.3); Platelet Count 156 10^3/uL (130-400); RBC 4.27 10^6/uL (3.93-5.22); RDW 15.5 % (11.7-14.6); RDW-SD 52.8 fL; WBC 5.71 10^3/uL (4.4-10.8)
[2024-06-17 12:43] LABS: INR 1.4 (0.9-1.1); PTT Activated 27.3 sec (20.6-30.2); Prothrombin Time 13.5 sec (9.1-11.1)
[2024-06-17 12:46] LABS: Diff Comment PLT Morph Reviewed; RBC Morphology Normal
[2024-06-17 12:50] LABS: ALT 292 U/L (14-59); AST 387 U/L (15-37); Albumin 3.1 g/dL (3.4-5.0); Alkaline Phosphatase 605 U/L (46-116); Anion Gap 12.1 mmol/L (3-11); BUN 10 mg/dL (7-18); Bilirubin, Direct 10.3 mg/dL (0.0-0.2); Bilirubin, Total 13.1 mg/dL (0.2-1.0); CO2 29.9 mmol/L (21.0-32.0); Calcium 9.3 mg/dL (8.5-10.1); Chloride 101 mmol/L (98-107); Estimated GFR 54.19 (mL/min/1.73m2); Glucose 192 mg/dL (74-106); Lipase 23 U/L (<78); Magnesium 1.6 mg/dL (1.8-2.4); Sodium 143 mmol/L (136-145); Total Protein 6.9 g/dL (6.4-8.2); Troponin I 13 ng/L (<or=51)
[2024-06-17 12:56] LABS: Potassium 2.9 mmol/L (3.5-5.1)
[2024-06-17] MEDS: Normal Saline - Diluent 50 ML VIAL IJ (13:07)
[2024-06-17] MEDS: Omnipaque 350 MG/ML 100 ML BTL IJ (13:21)
[2024-06-17] MEDS: Potassium Chloride Liquid 20 MEQ PKT 40 MEQ PO (13:29)
[2024-06-17] MEDS: MAGNESIUM SULFATE 1 GM/100 ML BAG IV_INF (13:29)
[2024-06-17] MEDS: POTASSIUM CHLORIDE 10 MEQ/100 ML BAG 100 MEQ IV_INF (13:30)
[2024-06-17 13:49] LABS: Troponin I 11 ng/L (<or=51)
[2024-06-17 15:01] LABS: Bilirubin Moderate (Negative); Blood Negative (Negative); Clarity Clear (Clear); Glucose Negative (Negative); Ketones Negative (Negative); Leukocyte Esterase Negative (Negative); Nitrite Negative (Negative); Specific Gravity <= 1.005 (1.005-1.025); Urobilinogen 0.2 mg/dL (Up to 0.2); pH 5.5 (5-8)
[2024-06-17 15:08] LABS: Anion Gap 8.4 mmol/L (3-11); BUN 10 mg/dL (7-18); CO2 30.6 mmol/L (21.0-32.0); CREATININE 0.9 mg/dL (0.55-1.02); Calcium 9.2 mg/dL (8.5-10.1); Chloride 100 mmol/L (98-107); Estimated GFR 61.49 (mL/min/1.73m2); Glucose 166 mg/dL (74-106); Potassium 4.1 mmol/L (3.5-5.1); Sodium 139 mmol/L (136-145)
[2024-06-17 15:17] LABS: Troponin I 14 ng/L (<or=51)
[2024-06-17] MEDS: Normal Saline 1,000 ML 150 ML IV (15:24)
--- NOTE | 2024-06-17 15:33 | HPE_ITS ---
Date of service: 06/17/24 Time of Service: 15:33 Assessment and Plan Assessment and plan (1) Painless jaundice: Status: Acute Assessment and plan: - Patient presented to the emergency department with weakness and newly discovered jaundice as of the morning prior to presentation - Exam in the ED was unremarkable with the exception of jaundice - However, patient has total bili of 13.1, AST 387, ALT 292, alk phos 605 - CT abdomen pelvis shows intra and extrahepatic biliary ductal dilation without evidence of cholelithiasis, cannot exclude obstructing stone though concerning for pancreatic mass - Patient has been accepted to [facility] [place] [facility] [place] there and back procedure for Tuesday for ERCP - [facility] recommended holding Eliquis and obtaining MRCP on 06/18/2024 (2) Chronic atrial fibrillation: Status: Chronic Assessment and plan: - Holding Eliquis as noted above - Continue home metoprolol (3) Sick sinus syndrome: Status: Chronic Assessment and plan: - Resulting in pacemaker placement - Continue metoprolol as noted above (4) CVA (cerebral vascular accident): Status: Resolved Assessment and plan: - History of, without residual deficits History of Present Illness History of Present Illness Chief Complaint: Weakness, jaundice Narrative: 88-year-old female with a past medical history CVA, hypertension who presents to the emergency department with chief complaint of weakness and jaundice. Patient's family noted that when she woke up this morning her skin was very yellow and the patient was also complaining that she was dizzy upon waking up. Patient also notes that she has been having hematuria for about a week and was seen in the ED on without any acute findings. Patient denies any other symptoms including headache, nausea, vomiting, abdominal pain, constipation or diarrhea. In the emergency department the patient was noted as having normal vital signs, and a normal physical exam with the exception of notable jaundice. CBC was unremarkable but CMP showed potassium of 2.9, magnesium of 1.6, total bilirubin of 13.1 (10.3 conjugated), AST of 387, ALT of 292, and an alk phos of 605. Patient had CT abdomen pelvis which showed intra and extrahepatic biliary ductal dilation without definitive evidence of cholelithiasis, wall obstructing stone should be considered, pancreatic mass cannot be excluded. Emergency room CONFERENCE PRODUCER spoke with [facility] [place] laboratory technicians Dr. Reynoso who recommended patient have an MRCP, and that patient would also be set up for 8 there and back ERCP at [facility] on Tuesday and recommended holding her Eliquis. Which time emergency room CONFERENCE PRODUCER reached out to hospitalist for admit patient with painless jaundice concerning for pancreatic mass and hypokalemia. Review of Systems All systems reviewed & are unremarkable except as noted in HPI and below PFSH All Active Problems (Updated 06/17/24 @ 15:54 by Devante Alvarez MD) Painless jaundice (Acute) Elevated transaminase measurement (Acute) Electrolyte disturbance (Acute) Jaundice (Acute) Pacemaker (Acute) Medtronic Device; Model No. [id number]. MRI Compatible. Dual lead programmed VVIR Chronic atrial fibrillation (Chronic) She is having atrial fibrillation with RVR since the decrease of her metoprolol. I have asked her to return to metoprolol 150 mg twice daily which she has tolerated previously. Her rates have improved but still some high ventricular rates as discussed above. We may need to consider adding another AV yasmeen blocking agent such as diltiazem or consider adding digoxin if she does not get good rate control or is truly intolerant to higher doses of beta-sukhdev.She is appropriately anticoagulated on Eliquis. Sick sinus syndrome (Chronic) pacemaker implanted; PG replaced 02/2018 Vitamin B12 deficiency (Chronic) Primary osteoarthritis of left knee (Acute 05/05/15) Patient wants to continue nonoperative treatment. She is not interested in any type of surgery. She finds that the Depo-Medrol usually is helpful. Synvisc was not effective for her. Follow-up with me in 4 months for repeat Depo-Medrol into her left knee. Social History Smoking/Tobacco Use Status: Former Tobacco Use Smoking risk assessment performed?: Yes Alcohol Intake: never Drug use: Never Substance use type: does not use Housing: apartment Do you feel safe at home: Yes Do you feel safe in your relationship?: Yes Meds Allergies and Home Medications Allergies Allergy/AdvReac Type Severity Reaction Status Date / Time Penicillins Allergy Intermediate local Verified 06/17/24 11:57 reaction nitroglycerin AdvReac Severe Other (See Verified 06/17/24 11:57 Comment) iron AdvReac Intermediate Nausea, Verified 06/17/24 11:57 passes out lisinopril AdvReac Mild cough Verified 06/17/24 11:57 Home Medications ?Medication ?Instructions ?Recorded ?Confirmed ?Type furosemide 20 mg tablet 20 mg PO DAILY 01/09/13 06/17/24 History pravastatin 40 mg tablet 40 mg PO .HS 01/09/13 06/17/24 History gabapentin 300 mg capsule 300 mg PO HS 08/31/16 06/17/24 History metoprolol tartrate 100 mg tablet 100 mg PO BID 12/10/20 06/17/24 History potassium chloride 10 mEq 20 meq PO BID 06/09/22 06/17/24 History capsule,extended release cyanocobalamin (vitamin B-12) 1,000 mcg IM [id number] 12/08/22 06/17/24 History 1,000 mcg/mL oral drops (Vitamin B-12) apixaban 5 mg tablet (Eliquis) 2.5 mg PO BID #30 tabs 06/08/23 06/17/24 History Exam Narrative Exam Narrative: Well-appearing older female laying in bed in no acute distress, ANO x 4, heart regular rhythm, lungs clear auscultation bilaterally, abdomen soft, nontender, nondistended, significant jaundice and scleral icterus Results Labs 06/17/24 12:20 06/17/24 14:52 Labs: Laboratory Results - last 24 hr 06/17/24 06/17/24 06/17/24 12:20 12:20 13:23 WBC 5.71 RBC 4.27 Hgb 13.8 Hct 39.9 MCV 93 MCH 32.3 MCHC 34.6 RDW 15.5 H Plt Count 156 MPV Immature Gran % 0.5 Neutrophils % 75.7 Lymphocytes % 11.0 Monocytes % 9.8 Eosinophils % 1.9 Basophils % 1.1 Nucleated RBC % 0.4 H Absolute Neutrophils 4.32 Absolute Lymphocytes 0.63 L Absolute Monocytes 0.56 Absolute Eosinophils 0.11 Absolute Basophils 0.06 RBC Morphology Normal PT 13.5 H INR 1.4 H APTT 27.3 Sodium 143 Potassium 2.9 L* Chloride 101 Carbon Dioxide 29.9 Anion Gap 12.1 H BUN 10 Creatinine 1.0 Est GFR (CKD-EPI 2020) 54.19 Glucose 192 H Calcium 9.3 Magnesium 1.6 L Total Bilirubin 13.1 H Conjugated Bilirubin 10.3 H Cancelled AST 387 H ALT 292 H Alkaline Phosphatase 605 H Troponin I 13 11 Total Protein 6.9 Albumin 3.1 L Lipase 23 Urine Color Urine Clarity Urine pH Ur Specific [place] Urine Protein Urine Ketones Urine Blood Urine Nitrite Urine Bilirubin Urine Urobilinogen Ur Leukocyte Esterase Urine Glucose 06/17/24 14:52 WBC RBC Hgb Hct MCV MCH MCHC RDW Plt Count MPV Immature Gran % Neutrophils % Lymphocytes % Monocytes % Eosinophils % Basophils % Nucleated RBC % Absolute Neutrophils Absolute Lymphocytes Absolute Monocytes Absolute Eosinophils Absolute Basophils RBC Morphology PT INR APTT Sodium Potassium Chloride Carbon Dioxide Anion Gap BUN Creatinine Est GFR (CKD-EPI 2020) Glucose Calcium Magnesium Total Bilirubin Conjugated Bilirubin AST ALT Alkaline Phosphatase Troponin I Total Protein Albumin Lipase Urine Color Dark Yellow Urine Clarity Clear Urine pH 5.5 Ur Specific [place] <= 1.005 Urine Protein Negative Urine Ketones Negative Urine Blood Negative Urine Nitrite Negative Urine Bilirubin Moderate H Urine Urobilinogen 0.2 Ur Leukocyte Esterase Negative Urine Glucose Negative Last Vital Signs Temp 97.7 F 06/17/24 12:07 Pulse 88 06/17/24 13:50 Resp 24 06/17/24 13:50 BP 108/84 06/17/24 13:46 Pulse Ox 97 06/17/24 13:50 Time Spent Time spent with Patient: >75 minutes Time was spent: preparing to see the patient(eg.review tests), obtaining and/or reviewing separately otained hiistory, ordering medications,tests, procedures, referring, communicating with other health pet care technician, indepentently interpreting results, counseling the patient and care coordination
--- NOTE | 2024-06-17 17:03 | W.PC.ACHO ---
Registration Status: Primary Language: Preferred Language: ED Information & Data Chief Complaint GenMedical 06/17/24 12:32 Triage Note family noticed that pt has 06/17/24 11:50 more profound weakness, and woke up yellow today. has complaints of hematuria on going for a week. family also noticed that pt's orientation off from her baseline. Most Recent Vital Signs Temperature 36.9 C 06/17/24 17:02 Temperature Source Temporal Artery Scan 06/17/24 17:02 Pulse 83 06/17/24 17:02 Pulse 97 H 06/17/24 13:50 Respiratory Rate 18 06/17/24 17:02 Respiratory Effort Normal, Non-Labored 06/17/24 12:51 Respiratory Depth Normal 06/17/24 12:51 Respiratory Pattern Normal 06/17/24 12:51 Blood Pressure 131/81 06/17/24 17:02 Blood Pressure Mean 91 06/17/24 13:46 Blood Pressure Position Sitting 06/17/24 12:51 Pulse Oximetry 95 06/17/24 17:02 Oxygen Delivery Method Room Air 06/17/24 17:02 Oxygen Flow Rate 0 06/17/24 17:02 Pain Level 0 06/17/24 17:02 Comment upon arrival 06/17/24 17:02 Allergies Penicillins Allergy (Intermediate, Verified 06/17/24 11:57) local reaction nitroglycerin Adverse Reaction (Severe, Verified 06/17/24 11:57) Other (See Comment) iron Adverse Reaction (Intermediate, Verified 06/17/24 11:57) Nausea, passes out lisinopril Adverse Reaction (Mild, Verified 06/17/24 11:57) cough Precautions Isolation Standard precaution 06/17/24 12:25 Active Medications Generic Name Dose Route Start Last Admin Trade Name Freq PRN Reason Stop Dose Admin Sodium Chloride 1,000 mls @ 150 mls/hr 06/17/24 13:05 06/17/24 15:24 Saline 1000ml Bag IV 06/17/24 19:44 150 mls/hr INFUSION STA Administration Iohexol 100 ml 06/17/24 13:15 06/17/24 13:21 Omnipaque 350 Mg/Ml 100 Ml Btl IJ 07/17/24 23:59 100 ml DIRECTED REBEKAH Administration Sodium Chloride 50 ml 06/17/24 13:15 06/17/24 13:07 Normal Saline - Diluent 50 Ml Vial IJ 50 ml .FOR DI USE REBEKAH Administration IV IV Catheter Type [Left Peripheral IV Antecubital] IV Catheter Gauge [Left 18 Antecubital] Diet Orders Category Date Time Status Heart Healthy Eating [DIET] Nutrition 06/17/24 Dinner Active Diagnostics 06/17/24 06/17/24 06/17/24 Range/Units 14:52 13:23 12:20 WBC (4.4-10.8) 10^3/uL RBC (3.93-5.22) 10^6/uL Hgb (11.2-15.7) g/dL Hct (36.0-46.0) % MCV (80-95) fL MCH (27.0-33.0) pg MCHC (32.0-36.0) % RDW (11.7-14.6) % Plt Count (130-400) 10^3/uL MPV (8.0-11.0) fL Immature Gran % % Neutrophils % % Lymphocytes % % Monocytes % % Eosinophils % % Basophils % % Nucleated RBC % (0.0-0.3) % Absolute Neutrophils (1.2-6.7) 10^3/uL Absolute Lymphocytes (1.2-3.4) 10^3/uL Absolute Monocytes (0.1-0.8) 10^3/uL Absolute Eosinophils (0.0-0.7) 10^3/uL Absolute Basophils (0.0-0.2) 10^3/uL RBC Morphology PT (9.1-11.1) sec INR (0.9-1.1) APTT (20.6-30.2) sec Sodium 139 (136-145) mmol/L Potassium 4.1 D (3.5-5.1) mmol/L Chloride 100 (98-107) mmol/L Carbon Dioxide 30.6 (21.0-32.0) mmol/L Anion Gap 8.4 (3-11) mmol/L BUN 10 (7-18) mg/dL Creatinine 0.9 (0.55-1.02) mg/dL Est GFR (CKD-EPI 2020) 61.49 (mL/min/1.73m2) Glucose 166 H (74-106) mg/dL Calcium 9.2 (8.5-10.1) mg/dL Magnesium (1.8-2.4) mg/dL Total Bilirubin (0.2-1.0) mg/dL Conjugated Bilirubin Cancelled (0.0-0.2) mg/dL AST 387 H (15-37) U/L ALT 292 H (14-59) U/L Alkaline Phosphatase 605 H (46-116) U/L Troponin I 14 11 13 (<or=51) ng/L Total Protein 6.9 (6.4-8.2) g/dL Albumin 3.1 L (3.4-5.0) g/dL Lipase 23 (<78) U/L Urine Color Dark Yellow (Yellow) Urine Clarity Clear (Clear) Urine pH 5.5 (5-8) Ur Specific [place] <= 1.005 (1.005-1.025) Urine Protein Negative (Neg-Trace) mg/dL Urine Ketones Negative (Negative) mg/dL Urine Blood Negative (Negative) Urine Nitrite Negative (Negative) Urine Bilirubin Moderate H (Negative) Urine Urobilinogen 0.2 (Up to 0.2) mg/dL Ur Leukocyte Esterase Negative (Negative) Urine Glucose Negative (Negative) mg/dL Hepatitis A IgM Ab Pending Hep Bs Antigen Pending Hep B Core Total Ab Pending Hepatitis C Antibody Pending 06/17/24 Range/Units 12:20 WBC 5.71 (4.4-10.8) 10^3/uL RBC 4.27 (3.93-5.22) 10^6/uL Hgb 13.8 (11.2-15.7) g/dL Hct 39.9 (36.0-46.0) % MCV 93 (80-95) fL MCH 32.3 (27.0-33.0) pg MCHC 34.6 (32.0-36.0) % RDW 15.5 H (11.7-14.6) % Plt Count 156 (130-400) 10^3/uL MPV (8.0-11.0) fL Immature Gran % 0.5 % Neutrophils % 75.7 % Lymphocytes % 11.0 % Monocytes % 9.8 % Eosinophils % 1.9 % Basophils % 1.1 % Nucleated RBC % 0.4 H (0.0-0.3) % Absolute Neutrophils 4.32 (1.2-6.7) 10^3/uL Absolute Lymphocytes 0.63 L (1.2-3.4) 10^3/uL Absolute Monocytes 0.56 (0.1-0.8) 10^3/uL Absolute Eosinophils 0.11 (0.0-0.7) 10^3/uL Absolute Basophils 0.06 (0.0-0.2) 10^3/uL RBC Morphology Normal PT 13.5 H (9.1-11.1) sec INR 1.4 H (0.9-1.1) APTT 27.3 (20.6-30.2) sec Sodium 143 (136-145) mmol/L Potassium 2.9 L* (3.5-5.1) mmol/L Chloride 101 (98-107) mmol/L Carbon Dioxide 29.9 (21.0-32.0) mmol/L Anion Gap 12.1 H (3-11) mmol/L BUN 10 (7-18) mg/dL Creatinine 1.0 (0.55-1.02) mg/dL Est GFR (CKD-EPI 2020) 54.19 (mL/min/1.73m2) Glucose 192 H (74-106) mg/dL Calcium 9.3 (8.5-10.1) mg/dL Magnesium 1.6 L (1.8-2.4) mg/dL Total Bilirubin 13.1 H (0.2-1.0) mg/dL Conjugated Bilirubin 10.3 H (0.0-0.2) mg/dL AST (15-37) U/L ALT (14-59) U/L Alkaline Phosphatase (46-116) U/L Troponin I (<or=51) ng/L Total Protein (6.4-8.2) g/dL Albumin (3.4-5.0) g/dL Lipase (<78) U/L Urine Color (Yellow) Urine Clarity (Clear) Urine pH (5-8) Ur Specific [place] (1.005-1.025) Urine Protein (Neg-Trace) mg/dL Urine Ketones (Negative) mg/dL Urine Blood (Negative) Urine Nitrite (Negative) Urine Bilirubin (Negative) Urine Urobilinogen (Up to 0.2) mg/dL Ur Leukocyte Esterase (Negative) Urine Glucose (Negative) mg/dL Hepatitis A IgM Ab Hep Bs Antigen Hep B Core Total Ab Hepatitis C Antibody Intake and Output - 24 Hour Total 04/27/25 11:49 thru 06/17/24 16:46 Intake Total 200 Balance 200 Weight 47.7 kg Intake: IV 200 Falls Risk Assessment History of Falls No History 06/17/24 16:46 Contributing Factors No Factors 06/17/24 16:46 Ambulatory Aids Independent 06/17/24 16:46 Tubes/Lines W/no contributing factors 06/17/24 16:46 Gait Evaluation No gait disturbance 06/17/24 16:46 Cognition No cognitive impairment 06/17/24 16:46 Fall Total Score 10 06/17/24 16:46 Level of Risk Standard/Low Risk 06/17/24 16:46 Problems (Last Reviewed 06/17/24 @ 12:30 by Krystal uGerra NP) Painless jaundice (Acute) Chronic atrial fibrillation (Chronic) Sick sinus syndrome (Chronic) v v v v v v v v v Sending and/or Receiving Nurses: Please use comment section below to note any information pertinent to the patient hand-off not included above. Information / Comments: Report received from: Complete SBAR report received from SANDI Winkler @ 16:28, all questions answered.
[2024-06-17] MEDS: Metoprolol 50 MG TAB 100 MG PO (21:40)
[2024-06-17] MEDS: Gabapentin 300 MG CAP PO (21:40)
[2024-06-17] MEDS: Normal Saline Flush 10 ML SYR IVP ×2 (21:40→21:41)
[2024-06-18 06:31] LABS: HCT 32.1 % (36.0-46.0); HGB 11.4 g/dL (11.2-15.7); MCH 32.6 pg (27.0-33.0); MCHC 35.5 % (32.0-36.0); MCV 92 fL (80-95); Platelet Count 133 10^3/uL (130-400); RDW 15.9 % (11.7-14.6); RDW-SD 52.8 fL
[2024-06-18 06:56] LABS: ALT 251 U/L (14-59); AST 387 U/L (15-37); Albumin 2.4 g/dL (3.4-5.0); Alkaline Phosphatase 529 U/L (46-116); Anion Gap 10.4 mmol/L (3-11); BUN 8 mg/dL (7-18); Bilirubin, Total 11.8 mg/dL (0.2-1.0); CO2 26.6 mmol/L (21.0-32.0); CREATININE 0.6 mg/dL (0.55-1.02); Calcium 8.7 mg/dL (8.5-10.1); Chloride 106 mmol/L (98-107); Estimated GFR 86.28 (mL/min/1.73m2); Glucose 117 mg/dL (74-106); Magnesium 1.9 mg/dL (1.8-2.4); Potassium 3.3 mmol/L (3.5-5.1); Sodium 143 mmol/L (136-145); Total Protein 5.8 g/dL (6.4-8.2)
[2024-06-18 07:48] VITALS: BP 132/70; PULSE 80; RESP 20; TEMP 36.3; O2SAT 99
[2024-06-18] MEDS: Normal Saline Flush 10 ML SYR IVP ×2 (09:11→19:52)
[2024-06-18] MEDS: Metoprolol 50 MG TAB 100 MG PO ×2 (09:12→19:52)
--- NOTE | 2024-06-18 10:15 | PDOC.CMIN ---
Date of service: 06/18/24 Time of Service: 10:15 Care Management Initial Assmt Initial Assessment Reason for Hospitalization: Painless Jaundice Functional Status/Living Situation Patient Presentation: Priscilla (marlon Donald, per pt) was lying in bed when CM met with her, she is pleasant and easy to engage in conversation. Priscilla feels very supported by her family and states that her children and grandchildren have all been here to see her. Priscilla drives and is active and independent at baseline. She lives in a [place] senior housing complex in [place], [place] she reports that she has wonderful neighbors and receives MOW twice weekly. Town of Residence: [place] Resides with: Alone (Senior Housing) Significant Other/Family: Local Natural Supports: Very supportive family and friends Senior Housing ([address] Employment Status: Retired Instrumental Activities of Daily Living (ADLs): Independent Medications Medication Management: No Issues/Barriers identified Physical Functioning/Mobility Assistive Device: Cane Advance Directives Advance Directives: Do you have an Advance Directive: Y 04/18/13 11:11 AD On File at [facility]: Y 09/08/12 09:36 Date Asked 03/21/24 03/21/24 22:16 AD Date Reviewed 06/17/24 06/17/24 16:36 COLST On File at [facility] COLST Date Scanned Code Status Resuscitation Status Full Code Portal Pt does not currently have a portal and education provided: Yes Insurance Coverage/Financial Issues Insurance: Medicaid MCR Financial Issues: None identified Care Team Visit Care Team Role Provider Type Laron Mae MD Primary Care Provider [facility] STAFF PHYSICIAN Krystal Guerra NP Emergency Provider NURSE PRACTITIONER Devante Alvarez MD Admit Provider [facility] STAFF PHYSICIAN Attending Provider Discharge Potential Discharge Needs: PCP F/U Appt Anticipated Barriers to Discharge: None Identified Patient/Family Education Needs: Review discharge instructions, discuss Ask Me Three Transportation: Private vehicle Plan: Priscilla requires further medical workup. MRCP is planned for today, then [place] [facility] [place] (likely tomorrow, nothing definitive.) CM will follow and support discharge recommendations, when identified. Social Determinants of Health Screening Social Determinants of health last assessed in clinic: 06/18/24 Will the Patient Participate in the Screening?: Yes Do you worry about having a steady place to live?: no Problems where you live: no known problems In the past 12 months, have you had to go without electric, gas, oil or water in your home?: no 1. Within the past 12 months, we worried whether our food would run out before we got money to buy more.: Never true 2. Within the past 12 months, the food we bought just didn't last and we didn't have money to get more.: Never true Has lack of transportation kept you from medical appointments or from doing things needed for daily living?: no Has anyone in your life made you feel unsafe or unsupported?: no How hard is it for you to pay for the very basics like food, housing, medical care, and heating? Would you say it is:: Not hard at all Do you want help finding or keeping work or a job?: I do not need or want help If for any reason you need help with day-to-day activities such as bathing, preparing meals, shopping, managing finances, etc., do you get the help you need?: I get all the help I need How often do you feel lonely or isolated from those around you?: Rarely Do you speak a language other than Samoan at home?: No Does the patient want assistance with any of the above?: No Health Related Social Needs Health related social needs: feeling lonely/isolated (Z60.8) [facility] All Active Problems (Updated 06/17/24 @ 15:54 by Devante Alvarez MD) Painless jaundice (Acute) Elevated transaminase measurement (Acute) Electrolyte disturbance (Acute) Jaundice (Acute) Pacemaker (Acute) Medtronic Device; Model No. [id number]. MRI Compatible. Dual lead programmed VVIR Chronic atrial fibrillation (Chronic) She is having atrial fibrillation with RVR since the decrease of her metoprolol. I have asked her to return to metoprolol 150 mg twice daily which she has tolerated previously. Her rates have improved but still some high ventricular rates as discussed above. We may need to consider adding another AV yasmeen blocking agent such as diltiazem or consider adding digoxin if she does not get good rate control or is truly intolerant to higher doses of beta-sukhdev.She is appropriately anticoagulated on Eliquis. Sick sinus syndrome (Chronic) pacemaker implanted; PG replaced 02/2018 Vitamin B12 deficiency (Chronic) Primary osteoarthritis of left knee (Acute 05/05/15) Patient wants to continue nonoperative treatment. She is not interested in any type of surgery. She finds that the Depo-Medrol usually is helpful. Synvisc was not effective for her. Follow-up with me in 4 months for repeat Depo-Medrol into her left knee. Social History Smoking/Tobacco Use Status: Former Tobacco Use Smoking risk assessment performed?: Yes Alcohol Intake: never Drug use: Never Substance use type: does not use Housing: apartment Do you feel safe at home: Yes Do you feel safe in your relationship?: Yes
--- NOTE | 2024-06-18 11:23 | NUR.NOTE ---
Nursing Note: Reviewed documentation by Sharmila Easley, student nurse and in agreement.
--- NOTE | 2024-06-18 11:32 | W.PM.PROGNOT ---
Date of Service Date of service: 06/18/24 Time of Service: 11:32 Assessment and Plan Assessment and plan (1) Painless jaundice: Status: Acute Assessment and plan: - Patient presented to the emergency department with weakness and newly discovered jaundice as of the morning prior to presentation - Exam in the ED was unremarkable with the exception of jaundice - However, patient has total bili of 13.1, AST 387, ALT 292, alk phos 605 - CT abdomen pelvis shows intra and extrahepatic biliary ductal dilation without evidence of cholelithiasis, cannot exclude obstructing stone though concerning for pancreatic mass - Patient has been accepted to [facility] for there and back procedure for Tuesday for ERCP - [facility] recommended holding Eliquis and obtaining MRCP, though unable to obtain due to patient's pacemaker (2) Chronic atrial fibrillation: Status: Chronic Assessment and plan: - Holding Eliquis as noted above - Continue home metoprolol (3) Sick sinus syndrome: Status: Chronic Assessment and plan: - Resulting in pacemaker placement - Continue metoprolol as noted above (4) CVA (cerebral vascular accident): Status: Resolved Assessment and plan: - History of, without residual deficits Subjective Subjective Interval history since last seen: Patient states she is doing well today has no complaints or concerns at this time. Exam Narrative Exam Narrative: Well-appearing older female laying in bed in no acute distress, ANO x 4, heart regular rhythm, lungs clear auscultation bilaterally, abdomen soft, nontender, nondistended, significant jaundice and scleral icterus Objective Last Vital Signs Temp 97.3 F L 06/18/24 07:48 Pulse 80 06/18/24 07:48 Resp 20 06/18/24 07:48 BP 132/70 06/18/24 07:48 Pulse Ox 99 06/18/24 07:48 Laboratory Results - last 24 hr 06/17/24 06/17/24 06/17/24 12:20 12:20 13:23 WBC 5.71 RBC 4.27 Hgb 13.8 Hct 39.9 MCV 93 MCH 32.3 MCHC 34.6 RDW 15.5 H Plt Count 156 MPV Immature Gran % 0.5 Neutrophils % 75.7 Lymphocytes % 11.0 Monocytes % 9.8 Eosinophils % 1.9 Basophils % 1.1 Nucleated RBC % 0.4 H Absolute Neutrophils 4.32 Absolute Lymphocytes 0.63 L Absolute Monocytes 0.56 Absolute Eosinophils 0.11 Absolute Basophils 0.06 RBC Morphology Normal PT 13.5 H INR 1.4 H APTT 27.3 Sodium 143 Potassium 2.9 L* Chloride 101 Carbon Dioxide 29.9 Anion Gap 12.1 H BUN 10 Creatinine 1.0 Est GFR (CKD-EPI 2020) 54.19 Glucose 192 H Calcium 9.3 Magnesium 1.6 L Total Bilirubin 13.1 H Conjugated Bilirubin 10.3 H Cancelled AST 387 H ALT 292 H Alkaline Phosphatase 605 H Troponin I 13 11 Total Protein 6.9 Albumin 3.1 L Lipase 23 Urine Color Urine Clarity Urine pH Ur Specific [place]arts Urine Protein Urine Ketones Urine Blood Urine Nitrite Urine Bilirubin Urine Urobilinogen Ur Leukocyte Esterase Urine Glucose 06/17/24 06/18/24 14:52 06:00 WBC 5.20 RBC 3.50 L Hgb 11.4 D Hct 32.1 L MCV 92 MCH 32.6 MCHC 35.5 RDW 15.9 H Plt Count 133 MPV Immature Gran % Neutrophils % Lymphocytes % Monocytes % Eosinophils % Basophils % Nucleated RBC % Absolute Neutrophils Absolute Lymphocytes Absolute Monocytes Absolute Eosinophils Absolute Basophils RBC Morphology PT INR APTT Sodium 139 143 Potassium 4.1 D 3.3 L Chloride 100 106 Carbon Dioxide 30.6 26.6 Anion Gap 8.4 10.4 BUN 10 8 Creatinine 0.9 0.6 Est GFR (CKD-EPI 2020) 61.49 86.28 Glucose 166 H 117 H Calcium 9.2 8.7 Magnesium 1.9 Total Bilirubin 11.8 H Conjugated Bilirubin AST 387 H ALT 251 H Alkaline Phosphatase 529 H Troponin I 14 Total Protein 5.8 L Albumin 2.4 L Lipase Urine Color Dark Yellow Urine Clarity Clear Urine pH 5.5 Ur Specific [place] <= 1.005 Urine Protein Negative Urine Ketones Negative Urine Blood Negative Urine Nitrite Negative Urine Bilirubin Moderate H Urine Urobilinogen 0.2 Ur Leukocyte Esterase Negative Urine Glucose Negative Time Spent with Patient Time Spent with Patient: >50 minutes Time was spent: preparing to see the patient(eg.review tests), obtaining and/or reviewing separately otained hiistory, ordering medications,tests, procedures, referring, communicating with other health care connector, indepentently interpreting results, counseling the patient and care coordination
[2024-06-18 15:28] VITALS: BP 106/69; PULSE 84; RESP 16; TEMP 36.1; O2SAT 97
--- NOTE | 2024-06-18 16:03 | PHACLINREV_ITS ---
Pharmacy Admission Review Admission Clinical Review Admission Pharmacy Review: Painless jaundice (Acute) Penicillins Allergy (Intermediate, Verified 06/17/24 11:57) local reaction nitroglycerin Adverse Reaction (Severe, Verified 06/17/24 11:57) Other (See Comment) iron Adverse Reaction (Intermediate, Verified 06/17/24 11:57) Nausea, passes out lisinopril Adverse Reaction (Mild, Verified 06/17/24 11:57) cough Resuscitation Status Full Code Height 5 ft Weight 47.7 kg Pharmacy Admission Review Renal Dosing Renal Dosing: BUN 8 mg/dL (7-18) 06/18/24 06:00 Creatinine 0.6 mg/dL (0.55-1.02) 06/18/24 06:00 Medications needing adjustments: Reviewed (crcl = 29, meds are OK) Anticoagulation Anticoagulation: Hgb 11.4 g/dL (11.2-15.7) D 06/18/24 06:00 Hct 32.1 % (36.0-46.0) L 06/18/24 06:00 Plt Count 133 10^3/uL (130-400) 06/18/24 06:00 INR 1.4 (0.9-1.1) H 06/17/24 12:20 Creatinine 0.6 mg/dL (0.55-1.02) 06/18/24 06:00 DVT Prophylaxis: Intervened (none currently ordered - eliquis on hold pending [facility] @ [facility] tomorrow. Dr Alvarez aware DVT prophylaxis not ordered, plan is to get patient up & mobile) Therapeutic Anticoagulation: Reviewed (eliquis 2.5 mg BID at home, on hold (last dose 06/17/24 am)) Opiate Usage Evaluate Pain Scale/Pains Meds: Reviewed (not on opiates) Relevant Labs Relevant Labs: Sodium 143 mmol/L (136-145) 06/18/24 06:00 Potassium 3.3 mmol/L (3.5-5.1) L 06/18/24 06:00 Chloride 106 mmol/L (98-107) 06/18/24 06:00 Magnesium 1.9 mg/dL (1.8-2.4) 06/18/24 06:00 Electrolytes, C-Reactive P, ESR: Reviewed (K+ = 3.3, AST/ALT = 387/251, Alk phos = 529) DM Control DM Control: N/A (not diabetic. last a1c = 6.5% 03/06/20) Cardiac Review Cardiac Review: Troponin I 14 ng/L (<or=51) 06/17/24 14:52 BP, HR, EF%: Reviewed (WNL. on home dose metoprolol tartrate 100 mg BID) QTc Review QTc: Reviewed (*QTc = 514 on 06/17/24*) List meds needing interventions: not on QT-prolonging meds IV to PO Switch IV Medications: Reviewed (meds are PO) Home Meds Home Med List reviewed: Reviewed
[2024-06-18 19:42] VITALS: BP 118/59; PULSE 94; RESP 19; TEMP 36.4; O2SAT 99
[2024-06-18] MEDS: Gabapentin 300 MG CAP PO (19:51)
[2024-06-19 07:33] VITALS: BP 114/71; PULSE 85; RESP 17; TEMP 36.3; O2SAT 95
[2024-06-19] MEDS: Normal Saline Flush 10 ML SYR IVP ×3 (07:57→19:30)
[2024-06-19] MEDS: Metoprolol 50 MG TAB 100 MG PO ×2 (08:52→19:30)
[2024-06-19 10:32] LABS: Hepatitis A Antibody IgM Negative (Negative); Hepatitis B Core Antibody Negative (Negative); Hepatitis B surface Ag Negative (Negative); Hepatitis C Ab w Rflx HCV PCR Negative (Negative)
--- NOTE | 2024-06-19 11:24 | CMPROGNOTE_ITS ---
Date of service: 06/19/24 Time of Service: 11:24 Care Management Progress Note Progress Note Text Progress Note Text: Priscilla was awake and sitting in a recliner; she is pleasant and easy to engage in conversation when CM met with her. Pt requires further medical work up for Jaundice and is waiting to go to [facility] [place] for a down and back ERCP (now planned for tomorrow.) She currently requires standby assistance with ambulation and may benefit from a PT eval. Priscilla denies concerns at this time and was provided with a word search book. CM will follow and support discharge recommendations when better known. Discharge Anticipated Barriers to Discharge: None Identified Patient/Family Education Needs: Review discharge instructions, discuss Ask Me Three Transportation: Private vehicle Plan: Priscilla requires further medical workup and is planning to go to [facility] for a down and back ERCP tomorrow. Anticipate, Priscilla will discharge home via private vehicle with family when medically ready. CM will follow and support discharge recommendations, when identified. Social Determinants of Health Screening Social Determinants of health last assessed in clinic: 06/19/24 Will the Patient Participate in the Screening?: Yes Do you worry about having a steady place to live?: no Problems where you live: no known problems In the past 12 months, have you had to go without electric, gas, oil or water in your home?: no 1. Within the past 12 months, we worried whether our food would run out before we got money to buy more.: Never true 2. Within the past 12 months, the food we bought just didn't last and we didn't have money to get more.: Never true Has lack of transportation kept you from medical appointments or from doing things needed for daily living?: no Has anyone in your life made you feel unsafe or unsupported?: no How hard is it for you to pay for the very basics like food, housing, medical care, and heating? Would you say it is:: Not hard at all Do you want help finding or keeping work or a job?: I do not need or want help If for any reason you need help with day-to-day activities such as bathing, preparing meals, shopping, managing finances, etc., do you get the help you need?: I get all the help I need How often do you feel lonely or isolated from those around you?: Rarely Do you speak a language other than Latvian at home?: No Does the patient want assistance with any of the above?: No Health Related Social Needs Health related social needs: feeling lonely/isolated (Z60.8)
--- NOTE | 2024-06-19 11:57 | W.PM.PROGNOT ---
Date of Service Date of service: 06/19/24 Time of Service: 11:57 Assessment and Plan Assessment and plan (1) Painless jaundice: Status: Acute Assessment and plan: - Patient presented to the emergency department with weakness and newly discovered jaundice as of the morning prior to presentation - Exam in the ED was unremarkable with the exception of jaundice - However, patient has total bili of 13.1, AST 387, ALT 292, alk phos 605 - CT abdomen pelvis shows intra and extrahepatic biliary ductal dilation without evidence of cholelithiasis, cannot exclude obstructing stone though concerning for pancreatic mass - Patient has been accepted to [facility] for there and back procedure on Tuesday for ERCP - [facility] recommended holding Eliquis and obtaining MRCP, though unable to obtain due to patient's pacemaker (2) Chronic atrial fibrillation: Status: Chronic Assessment and plan: - Holding Eliquis as noted above - Continue home metoprolol (3) Sick sinus syndrome: Status: Chronic Assessment and plan: - Resulting in pacemaker placement - Continue metoprolol as noted above (4) CVA (cerebral vascular accident): Status: Resolved Assessment and plan: - History of, without residual deficits Subjective Subjective Interval history since last seen: Patient states that she is doing well today and understands that her ERCP was scheduled at [facility] tomorrow 06/20/2024. Exam Narrative Exam Narrative: Well-appearing older female laying in bed in no acute distress, ANO x 4, heart regular rhythm, lungs clear auscultation bilaterally, abdomen soft, nontender, nondistended, significant jaundice and scleral icterus Objective Last Vital Signs Temp 97.3 F L 06/19/24 07:33 Pulse 85 06/19/24 07:33 Resp 17 06/19/24 07:33 BP 114/71 06/19/24 07:33 Pulse Ox 95 06/19/24 07:33 Time Spent with Patient Time Spent with Patient: >50 minutes Time was spent: preparing to see the patient(eg.review tests), obtaining and/or reviewing separately otained hiistory, ordering medications,tests, procedures, referring, communicating with other health health care marketing manager, indepentently interpreting results, counseling the patient and care coordination
--- NOTE | 2024-06-19 12:19 | CHAPLAIN ---
Priscilla was resting in bed when I visited. She told me that she's waiting to hear about being transferred to [facility] to see why she is peeing blood and what's going on with her stomach. She's not sure when she'll be transferred and that is frustrating. She was very pleasant and easily engaged in conversation. She said she lives in [place], after growing up in [place]. Her four and a half years ago. They were over 60 years. Priscilla talked about missing her , and still thinking at times of going to tell him something. She said many of her friends have too, two recently and she said she doesn't believe that aging to be 89 is all it's cracked up to be. Priscilla talked about listening to our dulcimer volunteer Mirtha and said Priscilla spoke with Mirtha about how much she enjoys Gilmar Sinha' music and tries to get to all his live events. Mirtha told Priscilla that she is Gilmar's sister, and will pass on her compliments to Gilmar. I explained my role and offered support.
[2024-06-19 15:12] VITALS: BP 118/75; PULSE 72; RESP 17; TEMP 37.5; O2SAT 98
[2024-06-19 19:28] VITALS: BP 105/60; PULSE 89; RESP 22; TEMP 36.4; O2SAT 97
[2024-06-19] MEDS: Gabapentin 300 MG CAP PO (19:30)
[2024-06-20 06:36] LABS: HGB 11.6 g/dL (11.2-15.7); MCH 32.6 pg (27.0-33.0); MCHC 36.3 % (32.0-36.0); MCV 90 fL (80-95); MPV 13.1 fL (8.0-11.0); Platelet Count 122 10^3/uL (130-400); RBC 3.56 10^6/uL (3.93-5.22); RDW 16.3 % (11.7-14.6); RDW-SD 53.1 fL; WBC 5.93 10^3/uL (4.4-10.8)
[2024-06-20 07:03] LABS: ALT 274 U/L (14-59); AST 388 U/L (15-37); Albumin 2.2 g/dL (3.4-5.0); Alkaline Phosphatase 690 U/L (46-116); Anion Gap 9.7 mmol/L (3-11); BUN 7 mg/dL (7-18); Bilirubin, Total 14.1 mg/dL (0.2-1.0); CO2 25.3 mmol/L (21.0-32.0); CREATININE 0.7 mg/dL (0.55-1.02); Calcium 8.6 mg/dL (8.5-10.1); Chloride 103 mmol/L (98-107); Estimated GFR 83.13 (mL/min/1.73m2); Glucose 242 mg/dL (74-106); Potassium 3.4 mmol/L (3.5-5.1); Sodium 138 mmol/L (136-145); Total Protein 5.4 g/dL (6.4-8.2)
[2024-06-20 07:30] VITALS: BP 130/77; PULSE 75; RESP 20; TEMP 36.7; O2SAT 96
[2024-06-20] MEDS: Metoprolol 50 MG TAB 100 MG PO ×2 (07:50→21:29)
[2024-06-20] MEDS: Normal Saline Flush 10 ML SYR IVP ×2 (07:51→21:30)
--- NOTE | 2024-06-20 09:35 | CMPROGNOTE_ITS ---
Date of service: 06/20/24 Time of Service: 09:35 Care Management Progress Note Progress Note Text Progress Note Text: Priscilla requires further medical work up for painless Jaundice and was transferred to [facility] for a down and back ERCP. CM will follow and support discharge recommendations when better known. Pt will likely discharge home with resumption of MOW (COA) when medically ready for discharge. No HH services are anticipated at this time. Discharge Potential Discharge Needs: PCP F/U Appt Anticipated Barriers to Discharge: None Identified Patient/Family Education Needs: Review discharge instructions, discuss Ask Me Three Transportation: Private vehicle Plan: Priscilla requires further medical workup and was transported to [facility] late morning for an ERCP. Anticipate, Priscilla will discharge home via private vehicle with family when medically ready. No new HH services are anticipated at this time. MOW will resume after discharge. CM will follow and support discharge recommendations, as needed. Social Determinants of Health Screening Social Determinants of health last assessed in clinic: 06/20/24 Will the Patient Participate in the Screening?: Yes Do you worry about having a steady place to live?: no Problems where you live: no known problems In the past 12 months, have you had to go without electric, gas, oil or water in your home?: no 1. Within the past 12 months, we worried whether our food would run out before we got money to buy more.: Never true 2. Within the past 12 months, the food we bought just didn't last and we didn't have money to get more.: Never true Has lack of transportation kept you from medical appointments or from doing things needed for daily living?: no Has anyone in your life made you feel unsafe or unsupported?: no How hard is it for you to pay for the very basics like food, housing, medical care, and heating? Would you say it is:: Not hard at all Do you want help finding or keeping work or a job?: I do not need or want help If for any reason you need help with day-to-day activities such as bathing, preparing meals, shopping, managing finances, etc., do you get the help you need?: I get all the help I need How often do you feel lonely or isolated from those around you?: Rarely Do you speak a language other than Panamanian at home?: No Does the patient want assistance with any of the above?: No Health Related Social Needs Health related social needs: feeling lonely/isolated (Z60.8)
[2024-06-20 16:45] VITALS: BP 151/83; PULSE 85; RESP 16; TEMP 36.2; O2SAT 95
[2024-06-20] MEDS: LORazepam 20 MG/10 ML VIAL IVP (17:56)
--- NOTE | 2024-06-20 18:29 | PGE_ITS ---
Date of Service Date of service: 06/20/24 Time of Service: 18:29 Assessment and Plan Assessment and plan (1) Painless jaundice: Status: Acute Assessment and plan: - Patient presented to the emergency department with weakness and newly discovered jaundice as of the morning prior to presentation - Exam in the ED was unremarkable with the exception of jaundice - However, patient has total bili of 13.1, AST 387, ALT 292, alk phos 605 - CT abdomen pelvis shows intra and extrahepatic biliary ductal dilation without evidence of cholelithiasis, cannot exclude obstructing stone though concerning for pancreatic mass - Patient had ERCP at [facility] on 06/20/2024, bile duct stent placed with visualization of likely malignancy which was biopsied, high suspicion for pancreatic cancer - Patient will need close follow-up with [facility] oncology at discharge (2) Chronic atrial fibrillation: Status: Chronic Assessment and plan: - Holding Eliquis as noted above - Continue home metoprolol (3) Sick sinus syndrome: Status: Chronic Assessment and plan: - Resulting in pacemaker placement - Continue metoprolol as noted above (4) CVA (cerebral vascular accident): Status: Resolved Assessment and plan: - History of, without residual deficits Subjective Subjective Interval history since last seen: Patient seen after being given Ativan for nausea after ERCP. Discussed ERCP findings with patient's daughter who understands that placement of biliary stent was done during ERCP and findings consistent with likely pancreatic cancer, pathology pending. Exam Narrative Exam Narrative: Fatigued, but otherwise well-appearing older female laying in bed, sleeping but able to wake up to verbal stimuli,, heart regular rhythm, lungs clear auscultation bilaterally, abdomen soft, nontender, nondistended, significant jaundice and scleral icterus Objective Last Vital Signs Temp 97.2 F L 06/20/24 16:45 Pulse 85 06/20/24 16:45 Resp 16 06/20/24 16:45 BP 151/83 H 06/20/24 16:45 Pulse Ox 95 06/20/24 16:45 Laboratory Results - last 24 hr 06/20/24 06:16 WBC 5.93 RBC 3.56 L Hgb 11.6 Hct 32.0 L MCV 90 MCH 32.6 MCHC 36.3 H RDW 16.3 H Plt Count 122 L MPV 13.1 H Sodium 138 Potassium 3.4 L Chloride 103 Carbon Dioxide 25.3 Anion Gap 9.7 BUN 7 Creatinine 0.7 Est GFR (CKD-EPI 2020) 83.13 Glucose 242 H Calcium 8.6 Total Bilirubin 14.1 H AST 388 H ALT 274 H Alkaline Phosphatase 690 H Total Protein 5.4 L Albumin 2.2 L Time Spent with Patient Time Spent with Patient: >50 minutes Time was spent: preparing to see the patient(eg.review tests), obtaining and/or reviewing separately otained hiistory, ordering medications,tests, procedures, referring, communicating with other health manager critical care, indepentently interpreting results, counseling the patient and care coordination
[2024-06-20 19:56] VITALS: BP 93/57; PULSE 64; TEMP 36.3; O2SAT 96
[2024-06-20 21:28] VITALS: BP 114/73
[2024-06-20] MEDS: Gabapentin 300 MG CAP PO (21:29)
[2024-06-21 07:21] VITALS: BP 105/80; PULSE 87; RESP 16; TEMP 36.1; O2SAT 95
[2024-06-21] MEDS: Normal Saline Flush 10 ML SYR IVP ×2 (08:12→20:30)
[2024-06-21] MEDS: Metoprolol 50 MG TAB 100 MG PO ×2 (08:13→20:30)
--- NOTE | 2024-06-21 12:47 | PDOC.CMPRO ---
Date of service: 06/21/24 Time of Service: 12:47 Care Management Progress Note Progress Note Text Progress Note Text: Priscilla was sitting up in the bed when CM met with her today. She was very pleasant. She stated that she did not really remember much about yesterday. She stated she is very tired, and doesn't have much appetite. She ate very little lunch, but did eat her ice cream. She stated that the ice cream was easy to swallow and felt good on her throat. CM requested a PT eval for Priscilla today. Priscilla stated she has not been out of bed much, and she lives alone. Daughter lives within an arms reach and helps out a lot. Discharge Potential Discharge Needs: PT Evaluation, PCP F/U Appt and Other (oncology f/u) Anticipated Barriers to Discharge: None Identified Patient/Family Education Needs: Review discharge instructions, discuss Ask Me Three Transportation: Private vehicle Plan: Anticipate that Priscilla will discharge home in the next day or 2, possibly with new services of PT. Priscilla will f/u with her PCP and with [facility] oncology. She will transport home in a private vehicle with her daughter and continue per her plan of care. CM will continue to follow and update the plan as needed. Social Determinants of Health Screening Social Determinants of health last assessed in clinic: 06/21/24 Will the Patient Participate in the Screening?: Yes Do you worry about having a steady place to live?: no Problems where you live: no known problems In the past 12 months, have you had to go without electric, gas, oil or water in your home?: no 1. Within the past 12 months, we worried whether our food would run out before we got money to buy more.: Don't know/refused 2. Within the past 12 months, the food we bought just didn't last and we didn't have money to get more.: Don't know/refused Has lack of transportation kept you from medical appointments or from doing things needed for daily living?: no Has anyone in your life made you feel unsafe or unsupported?: no How hard is it for you to pay for the very basics like food, housing, medical care, and heating? Would you say it is:: Not hard at all Do you want help finding or keeping work or a job?: I do not need or want help If for any reason you need help with day-to-day activities such as bathing, preparing meals, shopping, managing finances, etc., do you get the help you need?: I get all the help I need How often do you feel lonely or isolated from those around you?: Rarely Do you speak a language other than [place] at home?: No Does the patient want assistance with any of the above?: No Health Related Social Needs Health related social needs: feeling lonely/isolated (Z60.8)
--- NOTE | 2024-06-21 13:21 | PGE_ITS ---
Date of Service Date of service: 06/21/24 Time of Service: 13:21 Assessment and Plan Assessment and plan (1) Painless jaundice: Status: Acute Assessment and plan: - Patient presented to the emergency department with weakness and newly discovered jaundice as of the morning prior to presentation - Exam in the ED was unremarkable with the exception of jaundice - However, patient has total bili of 13.1, AST 387, ALT 292, alk phos 605 - CT abdomen pelvis shows intra and extrahepatic biliary ductal dilation without evidence of cholelithiasis, cannot exclude obstructing stone though concerning for pancreatic mass - Patient had [place] [facility] [place], bile duct stent placed with visualization of likely malignancy which was biopsied, high suspicion for pancreatic cancer - Patient will need close follow-up with [facility] oncology at discharge 06/21/24 Will repeat labs in the am. Probable dc in am (2) Chronic atrial fibrillation: Status: Chronic Assessment and plan: - Holding Eliquis as noted above - Continue home metoprolol 06/21/24 Restart eliquis on dc (3) Sick sinus syndrome: Status: Chronic Assessment and plan: - Resulting in pacemaker placement - Continue metoprolol as noted above (4) CVA (cerebral vascular accident): Status: Resolved Assessment and plan: - History of, without residual deficits Subjective Subjective Interval history since last seen: Pt seen and examined in her room. Still quite weak Exam Narrative Exam Narrative: Fatigued, but otherwise well-appearing older female laying in bed, sleeping but able to wake up to verbal stimuli,, heart regular rhythm, lungs clear auscultation bilaterally, abdomen soft, nontender, nondistended, significant jaundice and scleral icterus Objective Last Vital Signs Temp 36.1 C L 06/21/24 07:21 Pulse 87 06/21/24 07:21 Resp 16 06/21/24 07:21 BP 105/80 06/21/24 07:21 Pulse Ox 95 06/21/24 07:21 Time Spent with Patient Time Spent with Patient: 25-34 minutes Time was spent: preparing to see the patient(eg.review tests), obtaining and/or reviewing separately otained hiistory, ordering medications,tests, procedures, referring, communicating with other health animal care service worker, indepentently interpreting results, counseling the patient and care coordination
--- NOTE | 2024-06-21 14:00 | IN_ITS ---
PT Notes Visit Reasons: Painless Jaundice Physical Therapy Inpatient Initial Evaluation Date: 06/21/2024 Referring Doctor: Fernando Guidry MD PT Orders: PT CONSULT: Eval/Treat Precautions: Fall. Standard. Activity as tolerated. Pacemaker in situ. Patient Profile/Admitting Diagnosis: Makenzie is an 88-year-old female who presented to the ED on 06/17/2024 due to generalized weakness, yellowing of the skin, dizziness, blood in urine, and stool. Patient is admitted for management of painless jaundice, chronic AF, sand ick sinus syndrome. PMHX: All Active Problems (Updated 06/17/24 @ 15:54 by Devante Alvarez MD) Painless jaundice (Acute) Elevated transaminase measurement (Acute) Electrolyte disturbance (Acute) Jaundice (Acute) Pacemaker (Acute) Medtronic Device; Model No. [id number]. MRI Compatible. Dual lead programmed VVIR Chronic atrial fibrillation (Chronic) She is having atrial fibrillation with RVR since the decrease of her metoprolol. I have asked her to return to metoprolol 150 mg twice daily which she has tolerated previously. Her rates have improved but still some high ventricular rates as discussed above. We may need to consider adding another AV yasmeen blocking agent such as diltiazem or consider adding digoxin if she does not get good rate control or is truly intolerant to higher doses of beta- sukhdev.She is appropriately anticoagulated on Eliquis. Sick sinus syndrome (Chronic) pacemaker implanted; PG replaced 02/2018 Vitamin B12 deficiency (Chronic) Primary osteoarthritis of left knee (Acute 05/05/15) Patient wants to continue nonoperative treatment. She is not interested in any type of surgery. She finds that the Depo-Medrol usually is helpful. Synvisc was not effective for her. Follow-up with me in 4 months for repeat Depo-Medrol into her left knee. Social History/Home Situation: Lives alone in an apartment in [place]. Modified independent indoors and outdoors with single-point cane. Equipment Owned/DME: SPC Subjective: Complained of mildly dizzy. still very weak. Expressed her concerns about being able to manage at home alone. Agreeable to short-term SNF placement. [facility] coordinator in agreement as well. Objective: General Observation: Mildly confused. [facility] coordinator present in room. IV through L brachium. Jaundiced. Mental Status: Alert and oriented as to person, place, purpose. Needed repetition of instructions for during evalautionpart of session. Pain: L knee minimal pain Vital Signs: Closely monitored by nursing staff ROM: Right Upper Extremity: Shoulder Flexion WFL. Shoulder abduction WFL. Elbow flexion WFL. Wrist flexion WFL. Functional opening and closing of hand WFL. Left Upper Extremity: Shoulder Flexion WFL. Shoulder abduction WFL. Elbow flexion WFL. Wrist flexion WFL. Functional opening and closing of hand WFL. Right Lower Extremity: Hip flexion WFL. Hip abduction WFL. Knee flexion WFL. Ankle dorsiflexion to neutral only. Ankle plantarflexion WFL. Left Lower Extremity: Hip flexion WFL. Hip abduction WFL. Knee flexion WFL. Ankle dorsiflexion to neutral only. Ankle plantarflexion WFL. Strength: Right Upper Extremity: Shoulder flexors 4-/5. Shoulder abductors 4-/5. Elbow flexors 4-/5. Elbow extensors 4-/5. Engineering Specialist Technician strong. Left Upper Extremity: Shoulder flexors 4-/5. Shoulder abductors 4-/5. Elbow flexors 4-/5. Elbow extensors 4-/5. Engineering Specialist Technician strong. Right Lower Extremity: Hip flexors 4-/5. Hip abductors 4-/5. Knee flexors 4-/5. Knee extensors 4-/5. Ankle dorsiflexors 3-/5. Ankle plantarflexors 4-/5. Left Lower Extremity: Hip flexors 4-/5. Hip abductors 4-/5. Knee flexors 4-/5. Knee extensors 4-/5. Ankle dorsiflexors 3-/5. Ankle plantarflexors 4-/5. Bed Mobility/Transfers: Minimal[] cueing provided for use of B hands as needed for support, movement sequence, AD management, and posture to reduce fall risk and minimize pain report Supine to sit stand by assist Sit to stand minimal assist with FWW Stand to sit minimal assist with FWW Scoot up in bed minimal assist of PT and ANTIQUE CLOCK REPAIRER Aysha Gait: 40 feet with FWW with slowed ryan. Gait mildly ataxic. Step height and length asymmetric. Mildly SOB. Complained of L knee pain and instability which she hsaid she has had for quite a while now, unrespsonsive to injection. Wheelchair follow provided. Balance: Static Sitting: Good Dynamic Sitting: Fair Static Standing: Fair Dynamic Standing: Poor Special Tests: Mobility Limitations Standardized Measure [facility] AM-PAC 6 clicks Basic Mobility Inpatient Short Form: Raw Score: 18 CMS Score: 47% deficit Informed Consent/Education: Patient was instructed in purpose of PT consult and plan of care. Agreeable to proceed with established PT POC to achieve personal goals. 4 Stage Balance Test: Feet together unable Semi tandem deferred Full tandem deferred One legged stance deferred Assessment: Patient presents with clinical signs and symptoms consistent with current/admitting diagnoses that have resulted to mobility limitations, gait instability, generalized weakness, and overall ADL decline as demonstrated by the following impairment level findings: 1. Decreased strength to B UE/LE major muscle groups 2. Impaired sitting/standing balance 3. Impaired activity tolerance 4. Shortness of breath 6. Fatigue 7. Chronic L knee pain Impairments are contributing to the following functional limitations: 1. Decline in bed mobility skills 2. Decline in transfer skills 3. Difficulty with ambulation without assistive device and physical assistance 4. Increased completion time for mobility ADL performance 5. Increased risk for falls 6. Difficulty with managing steps alone safely Patient is assessed as a [id number] moderate complexity based on the following: History: 88-year-old female with past medical history as indicated above Examination: Demonstrable impairment in strength, balance, and mobility level with underlying impairments and functional limitations as exhibited above as well as deficit score of 47% utilizing the [facility] Mobility Inpatient Short Form Presentation: Evolving Decision Makin moderate complexity Goals: Goals X1 week 1. Supine-Sit independent 2. Sit-Supine independent 3. Sit-Stand independent 4. Stand-Sit independent with SPC 5. Bed-Chair independent with SPC 6. Chair-Bed independent with SPC 7. Independent gait on level surface with use of SPC for at least 150 feet without report of pain nor dyspnea 8. Independent stair negotiation while holding onto B rails for at least 5 steps without report of pain nor dyspnea 9. Independent with home exercise program 10. Good static and dynamic standing balance/tolerance Plan of Care/Treatment Plan: 1-2x/day, 7 days/week x 1 week. Plan of care has been reviewed with the L[facility] PRACTICAL NURSE [facility]IN[facility] NURSE providing the service under Physical Therapy direction. Initiate Physical Therapy intervention for pain management as needed, strengthening, bed mobility, transfers, gait, stairs, balance training, and use of assistive device. DISCHARGE RECOMMENDATIONS: [] Home with no services [] [] Home with services [specify] [] Home with outpatient PT [] [] SNF for continued rehabilitation [] [] [facility] [] [] SNF versus LTC based on ability to participate and progress [] [X] Short-term SNF to regain indepenent prior level of fucntion using single- point cane TREATMENT CODE/TIME: 69975 x 20 minutes for 1 unit, 06095 x 14 minutes for 1 unit (14:00-14:34). Thank you for the opportunity to participate in the care of this patient. Lana Marlow PT, DPT, CLT [facility] [place], [place]
--- NOTE | 2024-06-21 14:22 | CHAPLAIN ---
Priscilla was resting in bed when I stopped in, and talking with a friend who was visiting. Priscilla said she doesn't remember a lot about her trip to [facility] yesterday to have a bile duct stint placed, and that she's very fatigued from the trip, and still feels a hung over although she said she's never been hung over. She appears to be quite yellow today. During morning meeting the clinical coordinator let the Hospitalist know that Priscilla's daughter reports that Priscilla doesn't remember what she was told about the results of her exam and procedure at [facility] yesterday. With me, Priscilla spoke mostly about being tired from yesterday and said she's not sure if she up to going home tomorrow, but would if she was told to.
[2024-06-21 15:05] VITALS: BP 100/54; PULSE 72; RESP 16; TEMP 36.4; O2SAT 97
[2024-06-21 19:51] VITALS: BP 94/59; PULSE 83; RESP 18; TEMP 36.4; O2SAT 95
[2024-06-21] MEDS: Gabapentin 300 MG CAP PO (20:30)
[2024-06-22 02:46] VITALS: BP 85/59; PULSE 75; RESP 16; TEMP 36.6; O2SAT 94
[2024-06-22 06:28] LABS: Abs Immature Grans 0.12 10^3/uL (0.0-0.06); Absolute Basophil Count 0.03 10^3/uL (0.0-0.2); Absolute Eosinophil Count 0.13 10^3/uL (0.0-0.7); Absolute Lymphocyte Count 0.56 10^3/uL (1.2-3.4); Absolute Monocyte Count 0.84 10^3/uL (0.1-0.8); Absolute Neutrophil Count 5.72 10^3/uL (1.2-6.7); Basophils % 0.4 %; Eosinophils % 1.8 %; HCT 30.7 % (36.0-46.0); HGB 11.5 g/dL (11.2-15.7); Immature Grans % 1.6 %; Lymphocytes % 7.6 %; MCH 32.5 pg (27.0-33.0); MCHC 37.5 % (32.0-36.0); MCV 87 fL (80-95); Monocytes % 11.4 %; Neutrophils % 77.2 %; Nucleated RBC 0.7 % (0.0-0.3); RBC 3.54 10^6/uL (3.93-5.22); RDW 16.5 % (11.7-14.6); RDW-SD 51.9 fL
[2024-06-22 06:57] LABS: Diff Comment Diff Reviewed; Platelet Count 139 10^3/uL (130-400)
[2024-06-22 06:58] LABS: Poikilocytes 1+
[2024-06-22 07:08] LABS: ALT 421 U/L (14-59); AST 789 U/L (15-37); Anion Gap 7.1 mmol/L (3-11); BUN 19 mg/dL (7-18); Bilirubin, Direct 13.8 mg/dL (0.0-0.2); CO2 25.9 mmol/L (21.0-32.0); CREATININE 1.4 mg/dL (0.55-1.02); Calcium 8.5 mg/dL (8.5-10.1); Chloride 97 mmol/L (98-107); Estimated GFR 36.19 (mL/min/1.73m2); Glucose 133 mg/dL (74-106); Potassium 3.6 mmol/L (3.5-5.1); Sodium 130 mmol/L (136-145)
[2024-06-22 07:30] LABS: Alkaline Phosphatase 1031 U/L (46-116)
[2024-06-22 07:31] LABS: Bilirubin, Total 16.3 mg/dL (0.2-1.0)
[2024-06-22 07:42] VITALS: BP 97/65; PULSE 104; RESP 16; TEMP 36.1; O2SAT 96
--- NOTE | 2024-06-22 08:52 | PDOC.CMPRO ---
Date of service: 06/22/24 Time of Service: 08:52 Care Management Progress Note Progress Note Text Progress Note Text: Priscilla was awake and lying in bed when CM met with her; she is tired and states that she hasn't felt well enough to work with PT today. Priscilla appears to be leaning towards comfort focused care, however she wants to talk it over with her family before making a decision. Her daughter Beba is currently present and has already found her a hospital bed for home and 13/09 caregiver support will be provided by her Grandson Javier. Priscilla met with Palliative earlier today and completed a COLST form and is waiting to also talk things over with her daughter Gaby. Discharge Anticipated Barriers to Discharge: None Identified Patient/Family Education Needs: Review discharge instructions, discuss Ask Me Three Transportation: Other (Dependent on mobility) Plan: Jaqueline declines recommendation for SNF, and her family are supportive of this decision. Palliative is in the process of reviewing goals of care and her daughter Beba has found her a hospital bed and caregiver support at home. Anticipate, Priscilla will discharge home in the next day or 2 with full [facility] services and continued follow up with Palliative care. Jaqueline is planning to transport via private vehicle with her daughter if mobility allows. CM will continue to follow and update the plan as needed. Social Determinants of Health Screening Social Determinants of health last assessed in clinic: 06/22/24 Will the Patient Participate in the Screening?: Yes Do you worry about having a steady place to live?: no Problems where you live: no known problems In the past 12 months, have you had to go without electric, gas, oil or water in your home?: no 1. Within the past 12 months, we worried whether our food would run out before we got money to buy more.: Never true 2. Within the past 12 months, the food we bought just didn't last and we didn't have money to get more.: Never true Has lack of transportation kept you from medical appointments or from doing things needed for daily living?: no Has anyone in your life made you feel unsafe or unsupported?: no How hard is it for you to pay for the very basics like food, housing, medical care, and heating? Would you say it is:: Not hard at all Do you want help finding or keeping work or a job?: I do not need or want help If for any reason you need help with day-to-day activities such as bathing, preparing meals, shopping, managing finances, etc., do you get the help you need?: I get all the help I need How often do you feel lonely or isolated from those around you?: Rarely Do you speak a language other than [place] at home?: No Does the patient want assistance with any of the above?: No Health Related Social Needs Health related social needs: feeling lonely/isolated (Z60.8)
--- NOTE | 2024-06-22 09:10 | PT.INTREAT ---
PT Notes Visit Reasons: Painless Jaundice Inpatient Physical Therapy Treatment Note [facility] Date: 06/22/24 SUBJECTIVE: AM session: Priscilla states that she feels ok, but has no appetite. Willing to participate in PT. PM session: Pt just got back to bed from toilet. Declined another walk with this PT. She continues to report weakness. OBJECTIVE: []? PAIN: none VITALS: ?monitored by nsg. Therapeutic Activities ([id number]): Direct one-on-one instruction in dynamic activities to improve functional performance. ? BED MOBILITY/TRANSFERS? Supine-sit: SBA ? Sit-supine: SBA ? Sit-stand: CGA? Stand-sit: SBA? GAIT? Assistive Device: FWW? Weight bearing: FWB Assist: CGA ? Distance:?approx 150'? Deviation: slow ryan. ? toileted. SBA with self care.? ASSESSMENT:? tolerated session well. C/o of feeling drunk. No noted LOB. Improvement noted with distance of ambulation this am compared to yesterday. Fatigue noted post amb. PLAN: will continue to work on her endurance and functional mobility following PT POC. TREATMENT CODE/TIME: 25 min in am [id number]
[2024-06-22] MEDS: Normal Saline Flush 10 ML SYR IVP ×2 (09:17→20:43)
--- NOTE | 2024-06-22 12:03 | W.PALLCONSUL ---
Date of service: 06/22/24 Time of Service: 12:03 History of Present Illness Narrative: Priscilla was seen for Palliative consultation. She is an 88 year old female with a past medical Hx significant for CVA, a-fib, SSS with pacer (no defibrillator), who presented to the ED with painless jaundice and weakness. She was found to have pancreatic mass and went to [facility] for ERCP with Bx. The mass is highly suspicious for cancer. Palliative was consulted to discuss GOC. She reports that she has been progressively getting weaker prior to presenting to the ED. She has been sleeping all of the time. She cannot eat.Her weight is down about 35# over the last few months. She denies nausea. She denies pain. She does not think she can do her own personal care. She would want to be home at EOL. Reviewed that she likely has pancreatic cancer, Bx pending. After discussion, she states she does not feel strong enough to go to her great-grandson's graduation in [place]. She does not think she could tolerate chemo or even get to [facility] for a PET scan. Reviewed CODE STATUS. She is clear that she is a DNR/DNI. She does not want a feeding tube, she would take IVF trial, and she wishes to determine use of ABX at the time. She thinks she has [facility] paperwork somewhere. She thinks she put Beba first and grandson, Javier second. She did not want to to a new one. Her family is visiting this afternoon, will ask family if they have a copy. She has a supportive family. She names support people to be: Her grandson, Javier, who is willing to take care of her at home. Daughters, Beba ([place], lives near her), Janina ([place]), Tere ([place]), Gaby (lives locally) and son, Fernando ([place], [place]). She is leaning in the direction of home on hospice. Her daughter will be in this afternoon and she would like to meet again with Beba present. Assessment and Plan Assessment and plan (1) Painless jaundice: Status: Acute Assessment and plan: - Patient presented to the emergency department with weakness and newly discovered jaundice as of the morning prior to presentation - total bili of 13.1, AST 387, ALT 292, alk phos 605 - CT abdomen pelvis shows intra and extrahepatic biliary ductal dilation without evidence of cholelithiasis, cannot exclude obstructing stone though concerning for pancreatic mass - Patient had ERCP at [facility] on 06/20/2024, bile duct stent placed with visualization of likely malignancy which was biopsied, high suspicion for pancreatic cancer (2) Chronic atrial fibrillation: Status: Chronic Assessment and plan: Torrey was on hold for procedure. (3) Sick sinus syndrome: Status: Chronic Assessment and plan: Has pacemaker (4) CVA (cerebral vascular accident): Status: Resolved Assessment and plan: - History of, without residual deficits (5) Palliative care encounter: Status: Acute (6) Advance care planning: Status: Acute Assessment and plan: Priscilla is an 88 year old female with a past medical Hx significant for CVA, a-fib, SSS with pacer (no defibrillator), who presented to the ED with painless jaundice and weakness. She was found to have pancreatic mass and went to [facility] for ERCP with Bx. The mass is highly suspicious for cancer. Palliative was consulted to discuss GOC. She reports that she has been progressively getting weaker prior to presenting to the ED. She has been sleeping all of the time. She cannot eat. Her weight is down about 35# over the last few months. She denies nausea. She denies pain. She does not think she can do her own personal care. She would want to be home at EOL. Reviewed that she likely has pancreatic cancer, Bx pending. After discussion, she states she does not feel strong enough to go to her great-grandson's graduation in [place]. She does not think she could tolerate chemo or even get to [facility] for a PET scan. She thinks she wants comfort focused care/home on hospice but wants to discuss with family. Reviewed CODE STATUS. She is clear that she is a DNR/DNI. She does not want a feeding tube, she would take IVF trial, and she wishes to determine use of ABX at the time. COLST completed. She thinks she has [facility]CA paperwork somewhere. She thinks she put Beba first and grandson, Javier second. She did not want to to a new one. Her family is visiting this afternoon, will ask family if they have a copy. Will meet again with family this afternoon. Review of Systems Narrative: PER HPI PFSH All Active Problems (Updated 06/22/24 @ 15:09 by Valeri Alegria NP) Advance care planning (Acute) Palliative care encounter (Acute) Painless jaundice (Acute) Elevated transaminase measurement (Acute) Electrolyte disturbance (Acute) Jaundice (Acute) Pacemaker (Acute) Medtronic Device; Model No. [id number]. MRI Compatible. Dual lead programmed VVIR Chronic atrial fibrillation (Chronic) She is having atrial fibrillation with RVR since the decrease of her metoprolol. I have asked her to return to metoprolol 150 mg twice daily which she has tolerated previously. Her rates have improved but still some high ventricular rates as discussed above. We may need to consider adding another AV yasmeen blocking agent such as diltiazem or consider adding digoxin if she does not get good rate control or is truly intolerant to higher doses of beta-sukhdev.She is appropriately anticoagulated on Eliquis. Sick sinus syndrome (Chronic) pacemaker implanted; PG replaced 02/2018 Vitamin B12 deficiency (Chronic) Primary osteoarthritis of left knee (Acute 05/05/15) Patient wants to continue nonoperative treatment. She is not interested in any type of surgery. She finds that the Depo-Medrol usually is helpful. Synvisc was not effective for her. Follow-up with me in 4 months for repeat Depo-Medrol into her left knee. Social History Smoking/Tobacco Use Status: Former Tobacco Use Smoking risk assessment performed?: Yes Alcohol Intake: never Drug use: Never Substance use type: does not use Housing: apartment Do you feel safe at home: Yes Do you feel safe in your relationship?: Yes Exam Narrative Exam Narrative: General: very pleasant, elderly female, with significant jaundice, lying in bed, asleep but awakened to verbal stimuli. She appears fatigued. She engages in the visit and answers questions appropriately. HEENT: +scleral icterus, EOMI, mmm Neck: supple Respiratory: respirations appear even and unlabored at rest. Ext: moves all 4 extremities freely. Results Last Vital Signs Temp 36.1 C L 06/22/24 07:42 Pulse 104 H 06/22/24 07:42 Resp 16 06/22/24 07:42 BP 97/65 L 06/22/24 07:42 Pulse Ox 96 06/22/24 07:42 Labs 06/22/24 06:00 06/22/24 06:00 Labs: Laboratory Results - last 24 hr 06/22/24 06:00 WBC 7.40 RBC 3.54 L Hgb 11.5 Hct 30.7 L MCV 87 MCH 32.5 MCHC 37.5 H RDW 16.5 H Plt Count 139 MPV Immature Gran % 1.6 Neutrophils % 77.2 Lymphocytes % 7.6 Monocytes % 11.4 Eosinophils % 1.8 Basophils % 0.4 Nucleated RBC % 0.7 H Absolute Neutrophils 5.72 Absolute Lymphocytes 0.56 L Absolute Monocytes 0.84 H Absolute Eosinophils 0.13 Absolute Basophils 0.03 RBC Morphology See Below Poikilocytosis 1+ Sodium 130 L Potassium 3.6 Chloride 97 L Carbon Dioxide 25.9 Anion Gap 7.1 BUN 19 H Creatinine 1.4 H Est GFR (CKD-EPI 2020) 36.19 Glucose 133 H Calcium 8.5 Total Bilirubin 16.3 H* Conjugated Bilirubin 13.8 H AST 789 H ALT 421 H Alkaline Phosphatase 1031 H Total Protein 5.0 L Albumin 2.0 L Time Spent Time Spent with Patient Time Spent(min): 102
[2024-06-22 15:42] VITALS: BP 103/64; PULSE 89; RESP 16; TEMP 35.9; O2SAT 98
[2024-06-22 20:41] VITALS: BP 86/55; PULSE 82; RESP 26; TEMP 36.7; O2SAT 94
[2024-06-22] MEDS: Gabapentin 300 MG CAP PO (20:42)
[2024-06-23 07:42] VITALS: BP 88/61; PULSE 96; RESP 16; TEMP 36.9; O2SAT 96
[2024-06-23] MEDS: Normal Saline Flush 10 ML SYR IVP ×2 (08:05→19:51)
--- NOTE | 2024-06-23 09:27 | PGE_ITS ---
Date of Service Date of service: 06/23/24 Time of Service: 09:27 Assessment and Plan Assessment and plan (1) Painless jaundice: Status: Acute Assessment and plan: - Patient presented to the emergency department with weakness and newly discovered jaundice as of the morning prior to presentation - total bili of 13.1, AST 387, ALT 292, alk phos 605 - CT abdomen pelvis shows intra and extrahepatic biliary ductal dilation without evidence of cholelithiasis, cannot exclude obstructing stone though concerning for pancreatic mass - Patient had ERCP at [facility] on 06/20/2024, bile duct stent placed with visualization of likely malignancy which was biopsied, high suspicion for pancreatic cancer 06/23/24 Pt does not want to pursue further diagnostic and/or treatment options. Wants t o go home on hospice. (2) Chronic atrial fibrillation: Status: Chronic Assessment and plan: Eliquis was on hold for procedure. 06/23/24 Recommend stopping eliquis as pt is going on hospice (3) Sick sinus syndrome: Status: Chronic Assessment and plan: Has pacemaker (4) CVA (cerebral vascular accident): Status: Resolved Assessment and plan: - History of, without residual deficits (5) Palliative care encounter: Status: Acute (6) Advance care planning: Status: Acute Assessment and plan: Priscilla is an 88 year old female with a past medical Hx significant for CVA, a-fib, SSS with pacer (no defibrillator), who presented to the ED with painless jaundice and weakness. She was found to have pancreatic mass and went to [facility] for ERCP with Bx. The mass is highly suspicious for cancer. Palliative was consulted to discuss GOC. She reports that she has been progressively getting weaker prior to presenting to the ED. She has been sleeping all of the time. She cannot eat. Her weight is down about 35# over the last few months. She denies nausea. She denies pain. She does not think she can do her own personal care. She would want to be home at EOL. Reviewed that she likely has pancreatic cancer, Bx pending. After discussion, she states she does not feel strong enough to go to her great- grandson's graduation in [place]. She does not think she could tolerate chemo or even get to [facility] for a PET scan. She thinks she wants comfort focused care/home on hospice but wants to discuss with family. Reviewed CODE STATUS. She is clear that she is a DNR/DNI. She does not want a feeding tube, she would take IVF trial, and she wishes to determine use of ABX at the time. COLST completed. She thinks she has [facility]CA paperwork somewhere. She thinks she put Beba first and grandson, Javier second. She did not want to to a new one. Her family is visiting this afternoon, will ask family if they have a copy. Will meet again with family this afternoon. Subjective Subjective Interval history since last seen: Pt and family wants to stay one more day. Pt will not have access to Hospice care until Tuesday Exam Narrative Exam Narrative: HEENT-bilat scleral icterus Con-88 y/o female in good spirits. Jaundiced Pulm-no respiratory distress psych-Alert, gives linear history Objective Last Vital Signs Temp 36.9 C 06/23/24 07:42 Pulse 96 H 06/23/24 07:42 Resp 16 06/23/24 07:42 BP 88/61 L 06/23/24 07:42 Pulse Ox 96 06/23/24 07:42 Time Spent with Patient Time Spent with Patient: <25 minutes Time was spent: preparing to see the patient(eg.review tests), obtaining and/or reviewing separately otained hiistory, ordering medications,tests, procedures, referring, communicating with other health care process manager, indepentently interpreting results, counseling the patient and care coordination
--- NOTE | 2024-06-23 10:30 | PT.INDS ---
PT Notes Visit Reasons: Painless Jaundice The patient is an 88-year-old female who presented to the ED on 06/17/2024 due to generalized weakness, yellowing of the skin, dizziness, blood in urine, and stool. Patient is admitted for management of painless jaundice, chronic AF, sand ick sinus syndrome. Patient is s/p EGD at [facility] with mass observed and presumed pancreatic cancer. Planning on home to grandson's home on Tuesday on hospice. Patient sound asleep upon PT arrival. Spoke with SANDI Lundy who spoke with provider. Discharge from PT at this time secondary to patient able to perform functional mobility at this time as needed and expected home on hospice.
--- NOTE | 2024-06-23 12:15 | PDOC.CMDIS ---
Date of service: 06/25/24 Time of Service: 11:17 LACE Index Scoring Tool Questions: Length of Stay (in days): 7 - 13 Was the patient admitted via the E.D.?: Yes Comorbidities: Liver or Renal Disease and Metastatic Solid Tumor (pancreatic cancer) E.D. Visits: 1 Answers: Total Score: 14 Risk of Readmission: High Risk Care Management Discharge Plan Reason for Hospitalization: Pancreatic Cancer Discharge Plan: Priscilla is being discharged to her grandson, Javier's home with a same day admission to Hospice services. Priscilla will follow up with Hospice and her discharge plan of care as directed. Family will provide transportation. Javier's address is: [address] [place] [address] Patient/Family Education Needs: Review discharge instructions and plan to admit to Hospice on Tuesday. Discuss ask me three. Services Needed at Discharge: Home Health Care Services (Hospice admission is coordinated for Tuesday (CM confirmed with ELZA RN)) SDOH Health Related Social Needs: Health related social needs feeling lonely/isolated (Z60.8)
[2024-06-23 16:13] VITALS: BP 102/62; PULSE 58; RESP 16; TEMP 36.4; O2SAT 95
[2024-06-23] MEDS: Gabapentin 300 MG CAP PO (19:50)
[2024-06-23] MEDS: Metoprolol 50 MG TAB 100 MG PO (19:50)
[2024-06-23 19:51] VITALS: BP 124/79; PULSE 99; RESP 20; TEMP 37.6; O2SAT 96
--- NOTE | 2024-06-23 23:00 | RT.EKG_ITS ---
APPROVED REPORT Exam: Resting ECG Reason for Exam: chest pressure Patient Location: I HR:88 bpm ECG Measurements Heart Rate 88 AXIS MS [id number] P [id number] QRSd 119 QRS 6 QT 395 T -45 QTc 478 Conclusion Atrial fibrillation... Ventricular premature complex...V complex w/ short R-R interval Nonspecific intraventricular conduction delay..
[2024-06-23] MEDS: Mylanta Suspension 30 ML CUP PO (23:20)
[2024-06-24 04:36] VITALS: BP 97/60; PULSE 88; RESP 12; TEMP 36.9; O2SAT 95
[2024-06-24] MEDS: Acetaminophen 325 MG TAB PO ×3 (04:52→21:37)
[2024-06-24 07:37] VITALS: BP 122/78; PULSE 78; RESP 18; TEMP 36.8; O2SAT 96
[2024-06-24] MEDS: Normal Saline Flush 10 ML SYR IVP (07:41)
[2024-06-24] MEDS: Metoprolol 50 MG TAB 100 MG PO ×2 (07:41→21:37)
[2024-06-24] MEDS: Mylanta Suspension 30 ML CUP PO ×2 (08:24→21:37)
--- NOTE | 2024-06-24 13:27 | PGE_ITS ---
Date of Service Date of service: 06/24/24 Time of Service: 13:27 Assessment and Plan Assessment and plan (1) Painless jaundice: Status: Acute Assessment and plan: - Patient presented to the emergency department with weakness and newly discovered jaundice as of the morning prior to presentation - total bili of 13.1, AST 387, ALT 292, alk phos 605 - CT abdomen pelvis shows intra and extrahepatic biliary ductal dilation without evidence of cholelithiasis, cannot exclude obstructing stone though concerning for pancreatic mass - Patient had ERCP at [facility] on 06/20/2024, bile duct stent placed with visualization of likely malignancy which was biopsied, high suspicion for pancreatic cancer 06/23/24 Pt does not want to pursue further diagnostic and/or treatment options. Wants t o go home on hospice. 06/24/24 Plan to dc tomorrow 2/2 pt comfort and convenience (2) Chronic atrial fibrillation: Status: Chronic Assessment and plan: Eliquis was on hold for procedure. 06/23/24 Recommend stopping eliquis as pt is going on hospice (3) Sick sinus syndrome: Status: Chronic Assessment and plan: Has pacemaker (4) CVA (cerebral vascular accident): Status: Resolved Assessment and plan: - History of, without residual deficits (5) Palliative care encounter: Status: Acute (6) Advance care planning: Status: Acute Assessment and plan: Priscilla is an 88 year old female with a past medical Hx significant for CVA, a-fib, SSS with pacer (no defibrillator), who presented to the ED with painless jaundice and weakness. She was found to have pancreatic mass and went to [facility] for ERCP with Bx. The mass is highly suspicious for cancer. Palliative was consulted to discuss GOC. She reports that she has been progressively getting weaker prior to presenting to the ED. She has been sleeping all of the time. She cannot eat. Her weight is down about 35# over the last few months. She denies nausea. She denies pain. She does not think she can do her own personal care. She would want to be home at EOL. Reviewed that she likely has pancreatic cancer, Bx pending. After discussion, she states she does not feel strong enough to go to her great- grandson's graduation in [place]. She does not think she could tolerate chemo or even get to [facility] for a PET scan. She thinks she wants comfort focused care/home on hospice but wants to discuss with family. Reviewed CODE STATUS. She is clear that she is a DNR/DNI. She does not want a feeding tube, she would take IVF trial, and she wishes to determine use of ABX at the time. COLST completed. She thinks she has HCA paperwork somewhere. She thinks she put Beba first and grandson, Javier second. She did not want to to a new one. Her family is visiting this afternoon, will ask family if they have a copy. Will meet again with family this afternoon. Subjective Subjective Interval history since last seen: no new complaints Exam Narrative Exam Narrative: HEENT-bilat scleral icterus Con-88 y/o female in good spirits. Jaundiced Pulm-no respiratory distress psych-Alert, gives linear history Objective Last Vital Signs Temp 36.8 C 06/24/24 07:37 Pulse 78 06/24/24 07:37 Resp 18 06/24/24 07:37 BP 122/78 06/24/24 07:37 Pulse Ox 96 06/24/24 07:37 Time Spent with Patient Time Spent with Patient: 25-34 minutes Time was spent: preparing to see the patient(eg.review tests), obtaining and/or reviewing separately otained hiistory, ordering medications,tests, procedures, referring, communicating with other health health care consultant, indepentently interpreting results, counseling the patient and care coordination
--- NOTE | 2024-06-24 16:08 | CMPROGNOTE_ITS ---
Date of service: 06/24/24 Time of Service: 16:08 Care Management Progress Note Progress Note Text Progress Note Text: Priscilla was awake and lying in bed and is accompanied by her daughters Gaby and Beba and son Fernando; they were talking about end of life arrangements and what would happen to her Pacemaker if she is cremated? CM provided family with an end-of-life booklet by the [facility] and a [employer] Brochure since they were discussing this as an option they were unfamiliar with. Family had further questions about her prognosis and met with Dr. Guidry at there request. DME is all set, Priscilla's family was able to get there own hospital bed, commode and bedside table. Priscilla has a copy of her COLST form, and thinks she may have advanced directives on file at her PCP office. CM plans to check with [facility] in the morning. CM will continue to follow and support discharge planning needs during this difficult time of transition. Discharge Potential Discharge Needs: Other (Hospice services) Anticipated Barriers to Discharge: None Identified Patient/Family Education Needs: Review discharge instructions, discuss Ask Me Three Transportation: Private vehicle Plan: Priscilla will be discharging her grandsons home tomorrow (by noon) with same day admission to hospice services (CM coordinated with SANDI Coronado.) The address is [address] [place] [address], [facility]. Her daughter Gaby plans to pick her up around 11-1130 and is aware that a lift assist could be arranged if needed. CM will follow. Social Determinants of Health Screening Social Determinants of health last assessed in clinic: 06/24/24 Will the Patient Participate in the Screening?: Yes Do you worry about having a steady place to live?: no Problems where you live: no known problems In the past 12 months, have you had to go without electric, gas, oil or water in your home?: no 1. Within the past 12 months, we worried whether our food would run out before we got money to buy more.: Never true 2. Within the past 12 months, the food we bought just didn't last and we didn't have money to get more.: Never true Has lack of transportation kept you from medical appointments or from doing things needed for daily living?: no Has anyone in your life made you feel unsafe or unsupported?: no How hard is it for you to pay for the very basics like food, housing, medical care, and heating? Would you say it is:: Not hard at all Do you want help finding or keeping work or a job?: I do not need or want help If for any reason you need help with day-to-day activities such as bathing, preparing meals, shopping, managing finances, etc., do you get the help you need?: I get all the help I need How often do you feel lonely or isolated from those around you?: Rarely Do you speak a language other than Czech at home?: No Does the patient want assistance with any of the above?: No Health Related Social Needs Health related social needs: feeling lonely/isolated (Z60.8)
[2024-06-24 19:32] VITALS: BP 107/77; PULSE 67; RESP 18; TEMP 36.5; O2SAT 96
[2024-06-24 21:36] VITALS: BP 119/84
[2024-06-24] MEDS: Gabapentin 300 MG CAP PO (21:37)
[2024-06-25 07:30] VITALS: BP 103/60; PULSE 67; RESP 16; TEMP 36.8; O2SAT 100
[2024-06-25] MEDS: Metoprolol 50 MG TAB 100 MG PO (08:20)
[2024-06-25] MEDS: Normal Saline Flush 10 ML SYR IVP (08:20)
--- NOTE | 2024-06-25 09:31 | DSE_ITS ---
Date of service: 06/25/24 Time of Service: 09:31 DS: Diagnosis Discharge Diagnosis (1) Painless jaundice: Status: Acute (2) Chronic atrial fibrillation: Status: Chronic (3) Sick sinus syndrome: Status: Chronic (4) CVA (cerebral vascular accident): Status: Resolved (5) Palliative care encounter: Status: Acute (6) Advance care planning: Status: Acute Discharge Plan Disposition Patient Disposition: Home W/Hospice Services Condition: Stable Discharge Details Reason For Visit: Painless Jaundice Admit Date/Time: 06/17/24 15:32 Admit Provider: Devante Alvarez Attending Provider: Devante Alvarez Primary Care Provider: Laron Mae Hospital Course Hospital Course: History of Present Illness History of Present Illness Chief Complaint: Weakness, jaundice Narrative: 88-year-old female with a past medical history CVA, hypertension who presents to the emergency department with chief complaint of weakness and jaundice. Patient's family noted that when she woke up this morning her skin was very yellow and the patient was also complaining that she was dizzy upon waking up. Patient also notes that she has been having hematuria for about a week and was seen in the ED on without any acute findings. Patient denies any other symptoms including headache, nausea, vomiting, abdominal pain, constipation or diarrhea. In the emergency department the patient was noted as having normal vital signs, and a normal physical exam with the exception of notable jaundice. CBC was unremarkable but CMP showed potassium of 2.9, magnesium of 1.6, total bilirubin of 13.1 (10.3 conjugated), AST of 387, ALT of 292, and an alk phos of 605. Patient had CT abdomen pelvis which showed intra and extrahepatic biliary ductal dilation without definitive evidence of cholelithiasis, wall obstructing stone should be considered, pancreatic mass cannot be excluded. Emergency room HELP DESK REP spoke with [facility] supervisor statement clerks Dr. Reynoso who recommended patient have an MRCP, and that patient would also be set up for 8 there and back ERCP at [facility] on Tuesday and recommended holding her Eliquis. Which time emergency room HELP DESK REP reached out to hospitalist for admit patient with painless jaundice concerning for pancreatic mass and hypokalemia. Assessment and Plan Assessment and plan (1) Painless jaundice: Status: Acute Assessment and plan: - Patient presented to the emergency department with weakness and newly discovered jaundice as of the morning prior to presentation - Exam in the ED was unremarkable with the exception of jaundice - However, patient has total bili of 13.1, AST 387, ALT 292, alk phos 605 - CT abdomen pelvis shows intra and extrahepatic biliary ductal dilation without evidence of cholelithiasis, cannot exclude obstructing stone though concerning for pancreatic mass - Patient has been accepted to [facility] for there and back procedure for Tuesday for ERCP - [facility] recommended holding Eliquis and obtaining MRCP on 06/18/2024 (2) Chronic atrial fibrillation: Status: Chronic Assessment and plan: - Holding Eliquis as noted above - Continue home metoprolol (3) Sick sinus syndrome: Status: Chronic Assessment and plan: - Resulting in pacemaker placement - Continue metoprolol as noted above (4) CVA (cerebral vascular accident): Status: Resolved Assessment and plan: - History of, without residual deficits Addenda I met with Priscilla and her daughters, Beba and Gaby and her son, Fernando. Priscilla is clear that she does not want to pursue cancer work-up/treatment. She wants to go home on hospice. She will go to her grandson, Javier's home. Hospice should contact Javier at (home) [phone], (cell) [phone]. If they do not reach him, they can call Gaby at [phone]. IMPRESSION: 1. Intra and extrahepatic biliary ductal dilatation without definite evidence of choledocholithiasis. While obstructing stone should still be considered, pancreatic mass cannot be excluded. Further evaluation with ERCP/MRCP is recommended. 2. Colonic diverticulosis without evidence of acute diverticulitis. 3. Cholelithiasis and distended gallbladder. Small amount of pericholecystic fluid. 4. Pancreatic atrophy and marked dilatation of the pancreatic duct. 5. Trace amount of free fluid in the pelvis PT was admitted for painless jaundice and while she was here she did go down to [facility] for an ERCP. The tentative diagnosis was made of pancreatic cancer. After discussing formal diagnosis processes as well as prognosis, the pt elected to go home on hospice. Home Meds and New Rx's Prescriptions: Continued metoprolol tartrate 100 mg tablet 100 mg PO BID Patient Comments: patient reduced dose from 150mg BID to 100mg BID due to feeling cold especially in extremities - sx have improved potassium chloride 10 mEq capsule, extended release 20 meq PO BID Patient Comments: 12/09/21 pt states she forgets to take this sometimes. RH gabapentin 300 MG capsule 300 mg PO HS morphine concentrate 100 mg/5 mL (20 mg/mL) solution See Rx Instructions PO Q1H PRN MDD 24 ml Qty: 30 0RF Rx Instructions: 0.25-1.0 ml orally every 1 hour, as needed; HOSPICE lorazepam 1 mg tablet 0.5 mg PO Q4H PRN (Reason: anxiety) Qty: 6 5RF Rx Instructions: may increase to whole tab if needed HOSPICE furosemide 20 MG tablet 20 mg PO DAILY Vitamin B-12 1,000 mcg/mL drops 1,000 mcg IM [id number] Discontinued pravastatin 40 MG tablet 40 mg PO QPM Eliquis 2.5 mg tablet 2.5 mg PO BID Patient Comments: TAKE ONE TABLET BY MOUTH TWICE A DAY Discharge Instructions Stand Alone Forms: Nursing Discharge Form Activity:: Activity as Tolerated Equipment/Supplies:: No Equipment Needed Diet:: As Tolerated Discharge Orders Discharge Orders: Discharge Order (Routine); Ordered 06/25/24 Ordered By: Fernando Guidry DS: Summary Time Spent with Patient providing and/or coordinating discharge services: Greater than 30 minutes Status at Discharge Functional status at discharge: uses cane/walker Overall status at discharge: patient is not back to baseline Mental Status: mental status grossly normal Speech and Movement: speech and movement normal Mood: congruent mood Affect: normal affect Quality:SDOH Health Related Social Needs: Health related social needs feeling lonely/isolated (Z 60.8) Exam Psych Mental Status: mental status grossly normal Speech and Movement: speech and movement normal Mood: congruent mood Affect: normal affect DS: Data Vitals/I&O Vitals and I&O: Vital Signs Temperature 36.8 C 06/25/24 07:30 Temperature Source Temporal Artery Scan 06/25/24 07:30 Pulse 67 06/25/24 07:30 Pulse Rhythm Irregular 06/17/24 16:46 Pulse 97 H 06/17/24 13:50 Respiratory Rate 16 06/25/24 07:30 Respiratory Effort Normal 06/17/24 16:46 Respiratory Depth Normal 06/17/24 16:46 Respiratory Pattern Normal 06/17/24 16:46 Blood Pressure 103/60 06/25/24 07:30 Blood Pressure Mean 74 06/25/24 07:30 Blood Pressure Position Sitting 06/17/24 12:51 Pulse Oximetry 100 06/25/24 07:30 Oxygen Delivery Method Room Air 06/25/24 07:30 Oxygen Flow Rate 0 06/25/24 07:30 Pain Level 0 06/25/24 07:30 Comment RN notified 06/22/24 07:42 Intake & Output 06/24/24 06/24/24 06/25/24 11:59 23:59 11:59 Intake Total 700 / 950 250 / 950 Balance 700 / 950 250 / 950 Intake: Oral 700 / 950 250 / 950 Other: Urine Color Yellow Urine Appearance Cloudy Urine Odor Normal Comment moderate amount of urine, dark paras. pt urinated in toilet at this time. voided in toilet at this time. Stool Size Small Stool Characteristics Formed PFSH All Active Problems (Updated 06/22/24 @ 18:16 by Valeri Alegria NP) Pancreatic mass (Acute) Advance care planning (Acute) Palliative care encounter (Acute) Painless jaundice (Acute) Elevated transaminase measurement (Acute) Electrolyte disturbance (Acute) Jaundice (Acute) Pacemaker (Acute) Medtronic Device; Model No. [id number]. MRI Compatible. Dual lead programmed VVIR Chronic atrial fibrillation (Chronic) She is having atrial fibrillation with RVR since the decrease of her metoprolol. I have asked her to return to metoprolol 150 mg twice daily which she has tolerated previously. Her rates have improved but still some high ventricular rates as discussed above. We may need to consider adding another AV yasmeen blocking agent such as diltiazem or consider adding digoxin if she does not get good rate control or is truly intolerant to higher doses of beta-sukhdev.She is appropriately anticoagulated on Eliquis. Sick sinus syndrome (Chronic) pacemaker implanted; PG replaced 02/2018 Vitamin B12 deficiency (Chronic) Primary osteoarthritis of left knee (Acute 05/05/15) Patient wants to continue nonoperative treatment. She is not interested in any type of surgery. She finds that the Depo-Medrol usually is helpful. Syn visc was not effective for her. Follow-up with me in 4 months for repeat Depo-Medrol into her left knee. Social History Smoking/Tobacco Use Status: Former Tobacco Use Smoking risk assessment performed?: Yes Alcohol Intake: never Drug use: Never Substance use type: does not use Housing: apartment Do you feel safe at home: Yes Do you feel safe in your relationship?: Yes Time Spent with Patient Time Spent with Patient: <45 minutes Time was spent: preparing to see the patient(eg.review tests), obtaining and/or reviewing separately otained hiistory, ordering medications,tests, procedures, referring, communicating with other health rental boats caretaker, indepentently interpreting results, counseling the patient and care coordination
== END 2024-06-25 11:48 | disposition hospice, home (50) | DRG 436 ==
LOC: ER 15:22 → MS 16:36
PROVIDERS: Admitting Provider Family Medicine; Emergency Provider Registered Nurse Emergency; PCP Family Medicine; Responsible Provider Hospitalist; Visit Provider Family Medicine
DX: I48.20 Chronic atrial fibrillation, unspecified (principal); K83.8 Other specified diseases of biliary tract; I49.5 Sick sinus syndrome; Z66 Do not resuscitate; R53.1 Weakness; K80.20 Calculus of gallbladder without cholecystitis without obstruction; K57.30 Diverticulosis of large intestine without perforation or abscess without bleeding; R74.01 Elevation of levels of liver transaminase levels; C25.9 Malignant neoplasm of pancreas, unspecified; D53.8 Other specified nutritional anemias; M17.12 Unilateral primary osteoarthritis, left knee; Z95.0 Presence of cardiac pacemaker; Z79.01 Long term (current) use of anticoagulants; Z87.891 Personal history of nicotine dependence; Z86.73 Personal history of transient ischemic attack (TIA), and cerebral infarction without residual deficits; Z79.899 Other long term (current) drug therapy
CPT/HCPCS: 00123; 36415; 43274; 80048; 80053; 83690; 85027; 86704; 86709; 86803; 87340; 93005; 96361; 96365; 97162; 97530; 99285; 71046; 74177; 81003; 82248; 83735; 84484; 85025; 85610; 85730; 93010; 99223; 99232; 99233; 99239; A0425; A0428; J2060; J3475; J3480; J3490